=== PATIENT | male | born 1975 | race Caucasian/White ===

== ENCOUNTER 2016-12-23 02:03 | Inpatient (IN) | payer OTHER ==
[~2016-12-23] VITALS: Ht 152.4 cm; Wt 90.8 kg
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
--- NOTE | ~2016-12-23 | ENPV ---
Vascular Lower Extremities DVT Study Procedure Demographics Patient Name XANDER CASTILLO Date of Study 01/03/2017 Patient Number [id number] Gender Male Date of 1975 Age 41 Visit Number [id number] Height Accession Number [id number] Weight Room Number G6214 BSA BMI Referring Shayan Gil MD Physician Physician Physician Ordering Physician Jacquard Lace Weaver Customer Agent Nancy Andersen [facility] Conclusions Summary Bilaterally negative for DVT Procedure Type of Study: Veins:Lower Extremities DVT Study, Venous Duplex Lower Extremity Bilateral. Patient Status:Routine. Study Location:Inpatient Portable. Technical Quality:Adequate visualization. Velocities are measured in cm/s ; Diameters are measured in cm Right Lower Extremities DVT Study Measurements Right 2D and Doppler Measurements + + + + +------+------+ + !Location !Visualized!Compressibility!Thrombosis!Signal!Reflux!Reflux ! ! ! ! ! ! ! !(sec) ! + + + + +------+------+ + !GSV Thigh !Yes !Yes !None !Phasic!No ! ! + + + + +------+------+ + !Common !Yes !Yes !None !Phasic!No ! ! !Femoral ! ! ! ! ! ! ! + + + + +------+------+ + !Prox !Yes !Yes !None !Phasic!No ! ! !Femoral ! ! ! ! ! ! ! + + + + +------+------+ + !Mid Femoral!Yes !Yes !None !Phasic!No ! ! + + + + +------+------+ + !Dist !Yes !Yes !None !Phasic!No ! ! !Femoral ! ! ! ! ! ! ! + + + + +------+------+ + !Popliteal !Yes !Yes !None !Phasic!No ! ! + + + + +------+------+ + !Gastroc !Yes !Yes !None !Phasic!No ! ! + + + + +------+------+ + !PTV !Yes !Yes !None !Phasic!No ! ! + + + + +------+------+ + !Peroneal !Yes !Yes !None !Phasic!No ! ! + + + + +------+------+ + Left Lower Extremities DVT Study Measurements Left 2D and Doppler Measurements + + + + +------+------+ + !Location !Visualized!Compressibility!Thrombosis!Signal!Reflux!Reflux ! ! ! ! ! ! ! !(sec) ! + + + + +------+------+ + !GSV Thigh !Yes !Yes !None !Phasic!No ! ! + + + + +------+------+ + !Common !Yes !Yes !None !Phasic!No ! ! !Femoral ! ! ! ! ! ! ! + + + + +------+------+ + !Prox !Yes !Yes !None !Phasic!No ! ! !Femoral ! ! ! ! ! ! ! + + + + +------+------+ + !Mid Femoral!Yes !Yes !None !Phasic!No ! ! + + + + +------+------+ + !Dist !Yes !Yes !None !Phasic!No ! ! !Femoral ! ! ! ! ! ! ! + + + + +------+------+ + !Popliteal !Yes !Yes !None !Phasic!No ! ! + + + + +------+------+ + !Gastroc !Yes !Yes !None !Phasic!No ! ! + + + + +------+------+ + !PTV !Yes !Yes !None !Phasic!No ! ! + + + + +------+------+ + !Peroneal !Yes !Yes !None !Phasic!No ! ! + + + + +------+------+ + Signature dtt: ARACELI CARBAJAL dtd: 01/03/17 [place] Physician Self [place]ompson
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
--- NOTE | ~2016-12-23 | ENPV ---
Vascular Lower Extremities DVT Study Procedure Demographics Patient Name XANDER CASTILLO Date of Study 12/31/2016 Patient Number [id number] Gender Male Date of 1975 Age 41 Visit Number [id number] Height Accession Number [id number] Weight Room Number G6214 BSA BMI Referring Shayan Hernandes Interpreting Vasyl Birmingham Physician Physician MD Greta Alicea MD Physician Ordering Physician Shayan Hernandes Guest Service Aide First Sampler [facility] Lynda Birmingham Conclusions Summary TECHNIQUE: The veins of the lower extremities on the right and the left were evaluated from the groin to the ankle using little scale, compression, and augmentation. Venous hemodynamics were evaluated with color flow and spectral Doppler. FINDINGS: The deep veins of the legs bilaterally show normal color flow and compressibility without thrombosis. IMPRESSION: NEGATIVE BILATERAL LOWER EXTREMITY VENOUS DOPPLER. Procedure Type of Study: Veins:Lower Extremities DVT Study, Venous Duplex Lower Extremity Bilateral. Indications for Study:Trauma, Pain in Limb and Extended bedrest. Appropriate Use Criteria:8 Patient Status:Routine. Study Location:Inpatient Portable. Technical Quality:Adequate visualization. Velocities are measured in cm/s ; Diameters are measured in cm Right Lower Extremities DVT Study Measurements Right 2D and Doppler Measurements + + + + +------+------+ + !Location !Visualized!Compressibility!Thrombosis!Signal!Reflux!Reflux ! ! ! ! ! ! ! !(sec) ! + + + + +------+------+ + !GSV Thigh !Yes !Yes !None !Phasic!No ! ! + + + + +------+------+ + !Common !Yes !Yes !None !Phasic!No ! ! !Femoral ! ! ! ! ! ! ! + + + + +------+------+ + !Prox !Yes !Yes !None !Phasic!No ! ! !Femoral ! ! ! ! ! ! ! + + + + +------+------+ + !Mid Femoral!Yes !Yes !None !Phasic!No ! ! + + + + +------+------+ + !Dist !Yes !Yes !None !Phasic!No ! ! !Femoral ! ! ! ! ! ! ! + + + + +------+------+ + !Popliteal !Yes !Yes !None !Phasic!No ! ! + + + + +------+------+ + !Gastroc !Yes !Yes !None !Phasic!No ! ! + + + + +------+------+ + !PTV !Yes !Yes !None !Phasic!No ! ! + + + + +------+------+ + !Peroneal !Yes !Yes !None !Phasic!No ! ! + + + + +------+------+ + Left Lower Extremities DVT Study Measurements Left 2D and Doppler Measurements + + + + +------+------+ + !Location !Visualized!Compressibility!Thrombosis!Signal!Reflux!Reflux ! ! ! ! ! ! ! !(sec) ! + + + + +------+------+ + !GSV Thigh !Yes !Yes !None !Phasic!No ! ! + + + + +------+------+ + !Common !Yes !Yes !None !Phasic!No ! ! !Femoral ! ! ! ! ! ! ! + + + + +------+------+ + !Prox !Yes !Yes !None !Phasic!No ! ! !Femoral ! ! ! ! ! ! ! + + + + +------+------+ + !Mid Femoral!Yes !Yes !None !Phasic!No ! ! + + + + +------+------+ + !Dist !Yes !Yes !None !Phasic!No ! ! !Femoral ! ! ! ! ! ! ! + + + + +------+------+ + !Popliteal !Yes !Yes !None !Phasic!No ! ! + + + + +------+------+ + !Gastroc !Yes !Yes !None !Phasic!No ! ! + + + + +------+------+ + !PTV !Yes !Yes !None !Phasic!No ! ! + + + + +------+------+ + !Peroneal !Yes !Yes !None !Phasic!No ! ! + + + + +------+------+ + Signature dtt: Angelo Marcano dtd: 12/31/16 0810 Physician Self Edit
--- NOTE | ~2016-12-23 | ENPV ---
Vascular Lower Extremities DVT Study Procedure Demographics Patient Name XANDER CASTILLO Date of Study 01/07/2017 Patient Number [id number] Gender Male Date of 1975 Age 41 Visit Number [id number] Height Accession Number [id number] Weight Room Number G6214 BSA BMI Referring Lisa Martin MD Interpreting Baljeet Gil MD Physician Physician Physician Ordering Physician Odilia Buckner MD Health Care Attorney Clay Artist Theresa Shultz [facility] Conclusions Summary Normal venous duplex examination of the legs bilaterally with normal venous Doppler signals noted throughout. No evidence of thrombophlebitis is noted bilaterally in the deep and superficial veins of the legs. Small calf thrombi cannot be excluded. Procedure Type of Study: Veins:Lower Extremities DVT Study, Venous Duplex Lower Extremity Bilateral. Additional Indications:Prolonged immobility Appropriate Use Criteria:4 Patient Status:Routine. Study Location:Inpatient Portable. Technical Quality:Adequate visualization. Velocities are measured in cm/s ; Diameters are measured in cm Right Lower Extremities DVT Study Measurements Right 2D and Doppler Measurements + + + + +------+------+ + !Location !Visualized!Compressibility!Thrombosis!Signal!Reflux!Reflux ! ! ! ! ! ! ! !(sec) ! + + + + +------+------+ + !GSV Thigh !Yes !Yes !None !Phasic! ! ! + + + + +------+------+ + !Common !Yes !Yes !None !Phasic! ! ! !Femoral ! ! ! ! ! ! ! + + + + +------+------+ + !Prox !Yes !Yes !None !Phasic! ! ! !Femoral ! ! ! ! ! ! ! + + + + +------+------+ + !Mid Femoral!Yes !Yes !None !Phasic! ! ! + + + + +------+------+ + !Dist !Yes !Yes !None !Phasic! ! ! !Femoral ! ! ! ! ! ! ! + + + + +------+------+ + !Popliteal !Yes !Yes !None !Phasic! ! ! + + + + +------+------+ + !PTV !Yes !Yes !None !Phasic! ! ! + + + + +------+------+ + !Peroneal !Yes !Yes !None !Phasic! ! ! + + + + +------+------+ + Left Lower Extremities DVT Study Measurements Left 2D and Doppler Measurements + + + + +------+------+ + !Location !Visualized!Compressibility!Thrombosis!Signal!Reflux!Reflux ! ! ! ! ! ! ! !(sec) ! + + + + +------+------+ + !GSV Thigh !Yes !Yes !None !Phasic! ! ! + + + + +------+------+ + !Common !Yes !Yes !None !Phasic! ! ! !Femoral ! ! ! ! ! ! ! + + + + +------+------+ + !Prox !Yes !Yes !None !Phasic! ! ! !Femoral ! ! ! ! ! ! ! + + + + +------+------+ + !Mid Femoral!Yes !Yes !None !Phasic! ! ! + + + + +------+------+ + !Dist !Yes !Yes !None !Phasic! ! ! !Femoral ! ! ! ! ! ! ! + + + + +------+------+ + !Popliteal !Yes !Yes !None !Phasic! ! ! + + + + +------+------+ + !PTV !Yes !Yes !None !Phasic! ! ! + + + + +------+------+ + !Peroneal !Yes !Yes !None !Phasic! ! ! + + + + +------+------+ + Signature dtt: ARACELI CARBAJAL dtkatie: 01/07/17 0742 Physician Self Edit
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
[2016-12-23 02:25] LABS: BASOPHIL # 0.1 K/uL (0.0-0.2); BASOPHIL % 0.5 %; EOSINOPHIL % 0.2 %; HEMATOCRIT 43.3 % (37.0-53.0); IMMATURE GRANULOCYTE # 0.1 K/uL (0.0-0.3); IMMATURE GRANULOCYTE % 0.5 %; LYMPHOCYTE # 0.8 K/uL (0.8-4.0); MCH 32.5 pg (27.0-34.0); MCHC 34.6 gm/dL (32.0-36.5); MCV 93.7 fl (83.0-98.0); MONOCYTE # 0.6 K/uL (0.0-1.0); MONOCYTE % 4.5 %; MPV 10.7 fl (9.4-12.4); NEUTROPHIL # (ANC) 11.1 K/uL (1.4-9.0); NEUTROPHIL % 88.3 %; NRBC % 0 /100WBC (0-0.00); PLATELET COUNT 259 K/uL (150-450); RBC 4.62 M/uL (4.00-6.00); RDW-CV 12.1 % (11.9-14.6); WBC 12.6 K/uL (4.0-11.0)
[2016-12-23 02:26] LABS: PCO2 44 mmHg (35-45); PO2 203 mmHg (80-90)
[2016-12-23 02:27] LABS: POTASSIUM 3.5 mEq/L (3.7-5.1); SODIUM 140 mEq/L (135-145)
[2016-12-23 02:35] LABS: INR - (THERAPEUTIC) 0.89 (0.92-1.07); PROTIME 9.3 SECONDS (9.8-11.4); PTT 27 SECONDS (25-32)
[2016-12-23 02:38] LABS: ANION GAP 15.5 (10.0-19.0); BLOOD UREA NITROGEN 9 mg/dL (6-24); CHLORIDE 106 mMol/L (96-110); CREATININE 0.8 mg/dL (0.6-1.3); ESTIMATED GFR (MDRD EQUATION) > 60
[2016-12-23 04:44] LABS: BICARBONATE 21.2 mmol/L (18.0-23.0); PCO2 44 mmHg (35-45)
[2016-12-23 04:45] LABS: PO2 75 mmHg (80-90)
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
--- NOTE | 2016-12-23 06:40 | NUR ---
Patient arrived at [address] Hernandes and OR nurse. Dr. Hi and Dr. Hernandes spoke with the patient's family. Family has been in at the bedside to see patient. VSS. Started propofol, fentayl, and carrier per orders. Not following any commands, pupils pinpoint. On ventilator, currently 60% FiO2. ICP has been <7 and CPP>60. Continue to monitor, wake patient up. Monitor neuro status closely and ICP.
[2016-12-23] MEDS ORDERED: PRINIVIL OR ZES10 MG PO (10:52)
[2016-12-23] MEDS ORDERED: ZOLOFT50 MG PO (10:52)
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
[2016-12-23 18:03] LABS: BLOOD UREA NITROGEN 11 mg/dL (6-24); CHLORIDE 110 mMol/L (96-110); CO2 22 mMol/L (22-32); CREATININE 0.8 mg/dL (0.6-1.3); ESTIMATED GFR (MDRD EQUATION) > 60; SODIUM 142 mMol/L (135-145)
[2016-12-23 18:04] LABS: ANION GAP 14.7 (10.0-19.0); CALCIUM 7.3 mg/dL (8.5-10.5); POTASSIUM 4.7 mMol/L (3.7-5.1)
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
[2016-12-24 04:41] LABS: BICARBONATE 24.9 mmol/L (18.0-23.0); PCO2 44 mmHg (35-45)
[2016-12-24 04:42] LABS: HEMOGLOBIN 12.1 g/dL (12.0-17.0); MCH 32.4 pg (27.0-34.0); MCHC 33.6 gm/dL (32.0-36.5); MCV 96.5 fl (83.0-98.0); MPV 10.6 fl (9.4-12.4); PLATELET COUNT 239 K/uL (150-450); RBC 3.73 M/uL (4.00-6.00); RDW-CV 12.6 % (11.9-14.6); WBC 12.5 K/uL (4.0-11.0)
[2016-12-24 04:44] LABS: PO2 109 mmHg (80-90)
[2016-12-24 04:53] LABS: INR - (THERAPEUTIC) 0.92 (0.92-1.07); PROTIME 9.6 SECONDS (9.8-11.4)
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
[2016-12-24 05:38] LABS: ABSOLUTE NEUTROPHIL CT (ANC) 10.8 K/uL (1.4-9.0); BANDED NEUTROPHIL # 1.9 K/uL (0.0-0.1); BANDED NEUTROPHILS % 15 %; LYMPHOCYTE % 8 %; MONOCYTE # 0.8 K/uL (0.0-1.0); SEGMENTED NEUTROPHIL # 8.9 K/uL (1.4-9.0); SEGMENTED NEUTROPHIL % 71 %
--- NOTE | 2016-12-24 05:51 | NUR ---
Significant Event: Patient remains on ventilator on propofol and fentanyl. Started caridad gtt to maintain CPP>60. Opened ventric x2 for ICP>15 with clear bloody tinged drainage. Purposeful with left arm, spontaneous with legs, no movement on right arm. Overbreaths at times with spontaneous cough. ICP 4-13 for majority of shift. Patient's mother in room for short time, no other visitors or calls. Mcarthur with good UOP. No BM. OG to LIS. Hill J collar in place for precautions. Follow up: Continue to closely monitor ICP/neuro status and maintain ICP<15 and CPP>60 with caridad and propofol gtts.
[2016-12-24 08:25] LABS: ANION GAP 12.5 (10.0-19.0); BLOOD UREA NITROGEN 8 mg/dL (6-24); CALCIUM 7.5 mg/dL (8.5-10.5); CHLORIDE 109 mMol/L (96-110); CO2 24 mMol/L (22-32); CREATININE 0.8 mg/dL (0.6-1.3); ESTIMATED GFR (MDRD EQUATION) > 60; POTASSIUM 4.5 mMol/L (3.7-5.1); SODIUM 141 mMol/L (135-145)
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
[2016-12-24 16:31] LABS: BICARBONATE 24.7 mmol/L (18.0-23.0); PCO2 39 mmHg (35-45); PO2 96 mmHg (80-90)
[2016-12-24 16:44] LABS: ANION GAP 14.3 (10.0-19.0); BLOOD UREA NITROGEN 7 mg/dL (6-24); CALCIUM 7.9 mg/dL (8.5-10.5); CHLORIDE 108 mMol/L (96-110); CO2 23 mMol/L (22-32); CREATININE 0.7 mg/dL (0.6-1.3); ESTIMATED GFR (MDRD EQUATION) > 60; POTASSIUM 4.3 mMol/L (3.7-5.1); SODIUM 141 mMol/L (135-145)
--- NOTE | 2016-12-24 19:25 | NUR ---
Significant Event:Patient's propofol turned off at 0725, fentanyl gtt continues @ 100 mcg/hr, pt withdraws ext x 4 to deep painful stimuli, postures with Bilateral lower extremities, Ventric opened x 4 this shift, PERRLA noted as pupils are 2 and brisk, Papa gtt at 2 mcg/kg/min and Levo started and is at 0.05 mcg/kg/min, remains in SB-SR, RLL diminished lung sounds, has had some thick green/creamy sputum from ETT, parry with adequate UOP, BS hypo, Osmolite 1.5 started this shift and advanced to 30 mls/hr, Dr Hernandes and Dr Hi updated on patient frequently and spoke with family Follow up:Monitor closely for any changes
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
[2016-12-25 03:53] LABS: BICARBONATE 25.6 mmol/L (18.0-23.0); PCO2 36 mmHg (35-45)
[2016-12-25 03:56] LABS: PO2 161 mmHg (80-90)
[2016-12-25 04:08] LABS: ANION GAP 9.8 (10.0-19.0); BLOOD UREA NITROGEN 6 mg/dL (6-24); CHLORIDE 109 mMol/L (96-110); CO2 25 mMol/L (22-32); CREATININE 0.7 mg/dL (0.6-1.3); ESTIMATED GFR (MDRD EQUATION) > 60; POTASSIUM 3.8 mMol/L (3.7-5.1); SODIUM 140 mMol/L (135-145)
[2016-12-25 04:28] LABS: MCH 32.1 pg (27.0-34.0); MCHC 33.3 gm/dL (32.0-36.5); MCV 96.2 fl (83.0-98.0); MPV 11.6 fl (9.4-12.4); PLATELET COUNT 226 K/uL (150-450); RBC 3.43 M/uL (4.00-6.00); RDW-CV 12.6 % (11.9-14.6); WBC 10.7 K/uL (4.0-11.0)
--- NOTE | 2016-12-25 05:39 | NUR ---
Significant Event: Pt continues on the ventiolator without complications. Pt noted to have decorticate posturing to bilat upper extremities, with and without stimulation. Noted to extension with and without stimulation. Pt does not withdraw. No gag reflex noted, but is noted to have a spontaneous cough. Pt does not follow commands. No opening of eyes noted. Bradycardia in the 40s noted tonight without increase in ICP, MD notified. Robinul given x1 IV. Ventric was opened for a total of 6x. CSF is blood tinged. Tube feeding continues with minimal residuals. Did not see family tonight. Updated physician x3 tonight. Follow up: Continue neurointensive care.
[2016-12-25 05:44] LABS: ABSOLUTE NEUTROPHIL CT (ANC) 9.4 K/uL (1.4-9.0); BANDED NEUTROPHIL # 4.8 K/uL (0.0-0.1); BANDED NEUTROPHILS % 45 %; LYMPHOCYTE # 0.9 K/uL (0.8-4.0); LYMPHOCYTE % 8 %; MONOCYTE # 0.3 K/uL (0.0-1.0); SEGMENTED NEUTROPHIL # 4.6 K/uL (1.4-9.0); SEGMENTED NEUTROPHIL % 43 %
[2016-12-25 15:50] LABS: ANION GAP 9.9 (10.0-19.0); BLOOD UREA NITROGEN 4 mg/dL (6-24); CALCIUM 8.1 mg/dL (8.5-10.5); CHLORIDE 108 mMol/L (96-110); CO2 27 mMol/L (22-32); CREATININE 0.8 mg/dL (0.6-1.3); ESTIMATED GFR (MDRD EQUATION) > 60; POTASSIUM 3.9 mMol/L (3.7-5.1); SODIUM 141 mMol/L (135-145)
--- NOTE | 2016-12-25 16:02 | NUR ---
Significant Events: Patient extends to bilat lowers, decorticate to upper ext. Pupils equal and reactive. Does overbreathe vent at times. Cough and gag induced, cough spont at times. ICP 2-mid-20s, opened x3 with blood-tinged CSF drained. Fentanyl continues at 100 mcg/hr. Levo titrated to keep CPP >60, did quad strength. HR high 50s-low 70s. Mini-BAL completed this shift, lungs slightly coarse. Remains in SIMV, PEEP decreased to 8. Parry patent with adequate UOP. No BM. Osmolite 1.5 at goal of 60 ml/hr, max residual 90 mls. T max 100.1, Blanketrol machine switched d/t reading too low. Inserted temp parry. Follow up: Continue
[2016-12-26 03:36] LABS: BICARBONATE 28.5 mmol/L (18.0-23.0); PCO2 41 mmHg (35-45); PO2 131 mmHg (80-90)
[2016-12-26 03:54] LABS: ANION GAP 11.4 (10.0-19.0); BLOOD UREA NITROGEN 4 mg/dL (6-24); CHLORIDE 107 mMol/L (96-110); CO2 27 mMol/L (22-32); CREATININE 0.7 mg/dL (0.6-1.3); ESTIMATED GFR (MDRD EQUATION) > 60; POTASSIUM 3.4 mMol/L (3.7-5.1); SODIUM 142 mMol/L (135-145)
[2016-12-26 04:18] LABS: HEMATOCRIT 32.1 % (37.0-53.0); MCH 32.5 pg (27.0-34.0); MCHC 34.3 gm/dL (32.0-36.5); MPV 11.4 fl (9.4-12.4); PLATELET COUNT 237 K/uL (150-450); RBC 3.38 M/uL (4.00-6.00); RDW-CV 12.2 % (11.9-14.6); WBC 11.9 K/uL (4.0-11.0)
--- NOTE | 2016-12-26 04:42 | NUR ---
PT REMAINS INTUBATED WITH ICP/VENTRIC IN PLACE. ICP 2-23 THIS SHIFT, OPENED X3 FOR A TOTAL OF 90 ML OF STRAW COLORED CSF DRAINED. PERRL BRISKLY AT 2MM. DOES NOT TRACK, DOES NOT OPEN EYES SPONTANEOUSLY. SPONTANEOUS COUGH PRESENT, GAG PRESENT. RUE CONTINUES TO HAVE DECORTICATE POSTURING. LUE AND BLE WITHDRAW TO PAIN. INCREASING AMOUNTS OF SPONTANEOUS MOVEMENT NOTED SHIFT PROGRESSED. BECOMES OVERLY RIGID AND EXTENDS ENTIRE BODY IF PRESENTED WITH ANY STIMULUS. EYES CONTINUE TO DEVIATE UPWARD THROUGHOUT SHIFT. SB-SR ON MONITOR, LEVOPHED INCREASED TO 0.12 MCG/KG/MIN THIS SHIFT. TMAX 99.4, COOLING BLANKET OFF MOST OF SHIFT. SECRETIONS CONTINUE TO BE VILLAREAL/THICK FROM BOTH ETT AND ORAL SUCTIONING. OG REMAINS PATENT, TOLERATING TF WELL, RESIDUALS 65-150 FOR THIS RN. NO BM THIS SHIFT. UOP TRENDING DOWN THIS SHIFT. HARLEY BASURTO, RN
[2016-12-26 05:17] LABS: ABSOLUTE NEUTROPHIL CT (ANC) 10.7 K/uL (1.4-9.0); BANDED NEUTROPHIL # 6.1 K/uL (0.0-0.1); BANDED NEUTROPHILS % 51 %; LYMPHOCYTE # 1.1 K/uL (0.8-4.0); LYMPHOCYTE % 9 %; MONOCYTE # 0.1 K/uL (0.0-1.0); SEGMENTED NEUTROPHIL # 4.6 K/uL (1.4-9.0); SEGMENTED NEUTROPHIL % 39 %
--- NOTE | 2016-12-26 11:43 | NUR ---
A - NUT F/U. VENT. ICP/VENTRIC. LABS: ACCUCHECK WNL-REAS, K+ 3.4, GLU 146, BUN/CR 4/0.7, WBC 11.9. MEDS: KCL, FOLIC ACID/THIAMINE, SSI, PREVACID, BOWEL. DIET: OSMOLITE 1.5 @ 60 ML/HR W/ 200 ML WATER Q6 HRS VIA OG. RESIDUALS. 30-150 ML. PROVIDES 2160 KCAL, 90 G PRO, 1097 ML FREE WATER. EST NEEDS: 9807-5686 KCAL, 78-140 G PRO. D - DIFFICULTY SWALLOWING R/T VENT SUPPORT, CHI AEB NEED FOR ENTERAL NUTRITION. I - GOAL FOR CONTINUED ENTERAL NUTRITION TOLERANCE. M/E - WILL MONITOR POC, TF. F/U IN 2-4 DAYS.
--- NOTE | 2016-12-26 16:20 | NUR ---
SIGNIFICANT EVENT: FENT DRIP SHUT OFF AT 1205. PATIENT DOES NOT OPEN EYES SPONT, TO VOICE, OR TO PAIN. PUPILS EQUAL AND REACTIVE. PATIENT DOES NOT FOLLOW ANY COMMANDS. PATIENT MOVES BILATERAL LOWER EXTREMITIES SPONTANEOUSLY. PATIENT WITHDRAWS TO PAIN IN BILATERAL LOWER EXTREMITIES. PATIENT AT TIMES HAS EXTENSION/ POSTURING IN BILATERAL LOWER EXTREMITIES WHEN COUGHIN. PATIENT HAS PURPOSEFUL MOVMENTS IN L) UPPER EXTREMITY AND WITHDRAWS TO PAIN. PATIENT HAS DECORTICATE POSTURING AT REST AND TO PAIN IN R) UPPER EXTREMITY. NO SPONT. MOVEMENTS NOTED. ICP/VENTRIC IN PLACE. NO DRAINAGE AROUND ICP/VENTRIC SITE, NO CLOTTING/ BUBBLING/ OR BLOOD NOTED IN TUBING. VENTRIC CLOSED AT ALL TIMES TODAY. ICP 6-14 THROUGHOUT THE DAY. CPP 68-81 TODAY. PATIENT HAS BEEN IN SINUS RHYTHM, ANDRES AT TIMES. HR 50-60S. PULSES PALPABLE THROUGHOUT. LEVOPHED INFUSING AT 0.1 MCG/KG/MIN TO KEEP CPP 75-90. MAXT TEMP OF 99.8. EDEMA PRESENT. SBP 110-120, MAP>65. PATIENT HAS BEEN IN SIMV MODE ON THE VENT THROUGHOUT THE DAY. OCCASIONALLY OVERBREATHS VENT SETTINGS. RR 16, TV 650, PEEP 8, PSV 10, 40% FIO2. THICK CREAMY SECRETIONS THROUGHOUT ET TUBE AND ORAL SECRETIONS. ETCO2 WITHIN NORMAL. BOWEL SOUNDS PRESENT, NO BM. OG INFUSING OSMO AT 60ML/HR, GOAL. ACUU CHECKS EVERY 4 HOURS, AGGRESSIVE SLIDING SCALE. ADEQUATE URINE OUTPUT THROUGH ANTOINE. BATH COMPLETED TODAY. OT/PT ORDER TO DO PASSIVE ROM. FOLLOW UP: CONTINUE TO MONITOR.
[2016-12-26 17:07] LABS: ALBUMIN 2.2 gm/dL (3.5-5.0); TOTAL BILIRUBIN 0.4 mg/dL (0.0-1.5)
[2016-12-26 17:08] LABS: ANION GAP 7.8 (10.0-19.0); BLOOD UREA NITROGEN 6 mg/dL (6-24); CHLORIDE 107 mMol/L (96-110); CO2 30 mMol/L (22-32); CREATININE 0.8 mg/dL (0.6-1.3); ESTIMATED GFR (MDRD EQUATION) > 60; POTASSIUM 3.8 mMol/L (3.7-5.1); SODIUM 141 mMol/L (135-145)
[2016-12-27 05:01] LABS: BASOPHIL % 0.4 %; EOSINOPHIL # 0.1 K/uL (0.0-0.5); EOSINOPHIL % 0.6 %; HEMATOCRIT 32.7 % (37.0-53.0); HEMOGLOBIN 10.9 g/dL (12.0-17.0); IMMATURE GRANULOCYTE # 0.1 K/uL (0.0-0.3); IMMATURE GRANULOCYTE % 0.8 %; LYMPHOCYTE # 1.2 K/uL (0.8-4.0); LYMPHOCYTE % 11.4 %; MCH 32.1 pg (27.0-34.0); MCHC 33.3 gm/dL (32.0-36.5); MCV 96.2 fl (83.0-98.0); MONOCYTE # 0.5 K/uL (0.0-1.0); MPV 11.1 fl (9.4-12.4); NEUTROPHIL # (ANC) 8.3 K/uL (1.4-9.0); NEUTROPHIL % 81.8 %; NRBC % 0 /100WBC (0-0.00); PLATELET COUNT 252 K/uL (150-450); RDW-CV 12.7 % (11.9-14.6); WBC 10.1 K/uL (4.0-11.0)
[2016-12-27 05:03] LABS: ANION GAP 8.9 (10.0-19.0); BLOOD UREA NITROGEN 9 mg/dL (6-24); CALCIUM 8.5 mg/dL (8.5-10.5); CHLORIDE 111 mMol/L (96-110); CO2 27 mMol/L (22-32); CREATININE 0.7 mg/dL (0.6-1.3); ESTIMATED GFR (MDRD EQUATION) > 60; POTASSIUM 3.9 mMol/L (3.7-5.1); SODIUM 143 mMol/L (135-145)
--- NOTE | 2016-12-27 05:05 | NUR ---
Patient remained on an FIO2 of 40% with saturations of 99-100%. Breath sounds are slightly coarse to coarse through out. Suctioning small to moderate amounts of thick yellow/cream sputum. End tidal has ran 29-37. Will continue to monitor.
--- NOTE | 2016-12-27 06:41 | NUR ---
Significant Event: PATIENT ON PROPOFOL GTT AT 20MCG/KG/MIN. PURPOSEFUL WITH LEFT SIDE EXTREMITIES. SPONTANEOUS MOVEMENT OF RIGHT SIDE EXTREMITIES NOTED. SPONTANEOUS AND INDUCED COUGH. GAG INTACT. ICP 5-15. TEMP MAX 100.1. SCHEDULED TYLENOL AND MOTRIN. CONTINUES ON VENT. SUCTIONING CREAMY SECRETIONS. OGT WITH OSMOLITE TF AT GOAL 60ML/HR, Q6HR 200ML WATER FLUSHES. RESIDUAL HIGH 100ML. NO BM. ANTOINE WITH GOOD UOP. RIGHT IJ QUAD LUMEN. RIGHT PIV X2. LEVOPHED GTT TITRATED FOR CPP 75-90. PROPOFOL FOR LIGHT SEDATION. DR CONRAD AT BEDSIDE, STAPLED ICP/VENTRIC SITE FOR CSF DRAINAGE. Follow up: CONTINUE.
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
--- NOTE | 2016-12-27 17:42 | NUR ---
Significant Event:ATTEMPTED TO STOP SEDATION BUT UNABLE TO D/T INCREASED ICP'S. VENTRIC OPEN X 2 THIS PM, PROPAFOL INCREASED TO 35 MCQ/KG/MIN. MOTRIN CHANGED TO PRN Q 8 HRS LAST DOSE 1710. T-MAX 102.1 AT 1720. RESIDUALS 0-40-150., TREATED [address] IN AM AT 0200. BATH GIVEN, NO NEW SKIN ISSUE'S NOTED. SPONTANEOUS COUGH AND GAG., STARTED AMOXICILLIN , DC'D ROCHEFIN. Follow up:CONTINUE TO MONITOR, ZHEN CONSULT AND JASMIN CONSULT ORDERED
[2016-12-28 04:30] LABS: BLOOD UREA NITROGEN 12 mg/dL (6-24); CALCIUM 8.2 mg/dL (8.5-10.5); CHLORIDE 109 mMol/L (96-110); CO2 28 mMol/L (22-32); CREATININE 0.7 mg/dL (0.6-1.3); ESTIMATED GFR (MDRD EQUATION) > 60; SODIUM 144 mMol/L (135-145)
--- NOTE | 2016-12-28 05:00 | NUR ---
Patient remained on an FIO2 of 40% with end tidals of 31-35. Breath sounds are slightly coarse at times. Clear with suctioning. Suctioning small amounts of thick cream. Transported to CT this shift. Will continue to monitor.
[2016-12-28 05:01] LABS: BASOPHIL # 0.1 K/uL (0.0-0.2); BASOPHIL % 0.7 %; EOSINOPHIL # 0.1 K/uL (0.0-0.5); EOSINOPHIL % 0.7 %; HEMATOCRIT 33.4 % (37.0-53.0); HEMOGLOBIN 11.1 g/dL (12.0-17.0); IMMATURE GRANULOCYTE # 0.1 K/uL (0.0-0.3); IMMATURE GRANULOCYTE % 1.5 %; LYMPHOCYTE # 1.2 K/uL (0.8-4.0); MCH 32.3 pg (27.0-34.0); MCHC 33.2 gm/dL (32.0-36.5); MCV 97.1 fl (83.0-98.0); MONOCYTE # 0.5 K/uL (0.0-1.0); MONOCYTE % 7.7 %; MPV 10.7 fl (9.4-12.4); NEUTROPHIL # (ANC) 4.9 K/uL (1.4-9.0); NEUTROPHIL % 71.4 %; NRBC % 0 /100WBC (0-0.00); PLATELET COUNT 285 K/uL (150-450); RBC 3.44 M/uL (4.00-6.00); RDW-CV 12.8 % (11.9-14.6); WBC 6.8 K/uL (4.0-11.0)
--- NOTE | 2016-12-28 05:57 | NUR ---
Significant Event: PROPOFOL AT 35MCG/KG/MIN OVERNIGHT. GAVE PRN FENTANYL X1 FOR RESTLESSNESS PRIOR TO CT. OPENED VENTRIC X4. EXTENDS ON R) AND L) LOWER. PURPOSEFUL AT TIMES ON L) UPPER. VSS. TMAX OF 102.9. DR. NICOLE MADE AWARE OVERNIGHT. CONTINUES IN SIMV, 40%. LUNG SOUNDS COARSE AT TIMES. THICK YELLOW SPUTUM OUT OF ETT. HYPOACTIVE BOWEL SOUNDS. NO BM. HAD RESIDUAL MAX OF 440ML. NOTIFIED DR. NICOLE. HELD TUBE FEED UNTIL <200ML. RESTARTED TF AT 0500 THIS AM. GOOD UOP. TURNED Q2HR. TO CT OVERNIGHT. Follow up: CONTINUE TO MONITOR. NEED PLAN FOR TRACH/PEG
--- NOTE | 2016-12-28 10:25 | NUR ---
Reviewed chart, talked with pt mom and sister in waiting room, and called Carine on her cell phone [phone]. She has been working from home in the mornings and coming about 2pm to see patient daily. Discussed referral to [facility], offered other option of [facility] in [place], Carine reports [facility] is her preference. Will start referral today and let Carine and pt mom and sister know if/when [facility] will come out to assess next week. Carine is fine with that plan, anticipate pt getting trach and peg early next week. Called [facility] and talked with Patrizia [phone]. Will fax referral information to [phone] and Patrizia will call me back today if she knows when they will visit next week, otherwise I will touch base with her on Saturday.
--- NOTE | 2016-12-28 11:26 | NUR ---
A - NUT F/U. VENT. SEDATED ON PROPOFOL. TF HELD OVERNIGHT D/T RESIDUALS. NO BM SINCE ADMIT - MEDS BEING GIVEN. ICP/VENTRIC. POSSIBLE TRACH/PEG NEXT WEEK. LABS: ACCUCHECK WNL-REAS, GLU 128, ALB 2.2. MEDS: KCL, CEREBYX, FOLIC ACID, THIAMINE, SSI, PREVACID, AMPICILLIN, BOWEL. DIET: OSMOLITE 1.5 @ 60 ML/HR VIA OG. RESIDUALS 0-440 ML. PROVIDES 2160 KCAL, 90 G PRO, 1097 ML FREE WATER. NEEDS: [id number] KCAL, 78-140 G PRO D - DIFFICULTY SWALLOWING R/T VENT SUPPORT AEB NEED FOR ENTERAL NUTRITION. INADEQUATE ENTERAL NUTRITION INFUSION R/T ALTERED GI FUNCTION AEB NO BM SINCE ADMIT, RESIDUALS 440 ML. I - GOAL FOR ENTERAL NUTRITION TOLERANCE. GOAL FOR IMPROVED GI FUNCTION. M/E - WILL MONITOR POC, GI FUNCTION, TF F/U IN 2-3 DAYS.
--- NOTE | 2016-12-28 13:03 | NUR ---
Speech Tx Note: Orders rec'd; Chart rev'd; Per discussion with pt's RN, pt is intubated and sedated. Pt will not be able to fully participate in a speech/swallowing evaluation at this time. Will f/u and initiate evaluation when pt's medical status status improves. Thank you for this referral. Charisma Joseph M.A. [facility]-INTERPRETER TRANSLATOR
--- NOTE | 2016-12-28 16:06 | NUR ---
No changes to vent settings t/o shift, continued on 40% Fio2 lung sounds slightly coarse uppers, diminished/slightly coarse bases. Sxn small-moderate thick cream with spont cough from Pt. Will continue to monitor and wean as ordered
--- NOTE | 2016-12-28 19:13 | NUR ---
Significant Event:Pt sedated on propofol @ 15 mcg/kg/min, pt appears to follow commands by wiggling toes to LLE and withdraws to pain in LUE and extends/withdraws to deep painful stimuli in RLE and RUE, pupils 2 and brisk, pt in SR, Dr Hernandes updated frequently, d/c'd parry catheter and had to replace it d/t bladder scan > 999mls, tolerates Osmolite 1.5 @ 60 mls/hr with minimal residuals, getting MOM, sennakot, colace and mag citrate in order to pass BM, fentanyl given x 1 for pain and Oxycodone given routine Follow up:Continue to monitor neuro status closely for any changes
--- NOTE | 2016-12-29 04:56 | NUR ---
No changes made to vent settings this shift. FiO2 currently 40% for O2 sats of 99-100%. ETCO2 was 31-37 throughout the shift. Breathsounds slightly coarse throughout bilaterally, suctioning small amounts thick creamy secretions. Will continue to monitor patient.
[2016-12-29 13:31] LABS: BASOPHIL # 0.1 K/uL (0.0-0.2); BASOPHIL % 0.7 %; EOSINOPHIL # 0.1 K/uL (0.0-0.5); EOSINOPHIL % 1.9 %; HEMATOCRIT 35.7 % (37.0-53.0); HEMOGLOBIN 11.9 g/dL (12.0-17.0); IMMATURE GRANULOCYTE # 0.2 K/uL (0.0-0.3); IMMATURE GRANULOCYTE % 2.9 %; LYMPHOCYTE % 27.8 %; MCH 32.4 pg (27.0-34.0); MCHC 33.3 gm/dL (32.0-36.5); MCV 97.3 fl (83.0-98.0); MONOCYTE # 0.7 K/uL (0.0-1.0); MPV 9.8 fl (9.4-12.4); NEUTROPHIL # (ANC) 4.1 K/uL (1.4-9.0); NEUTROPHIL % 56.7 %; NRBC % 0 /100WBC (0-0.00); PLATELET COUNT 299 K/uL (150-450); RBC 3.67 M/uL (4.00-6.00); RDW-CV 12.5 % (11.9-14.6); WBC 7.3 K/uL (4.0-11.0)
[2016-12-29 13:44] LABS: ANION GAP 11.4 (10.0-19.0); BLOOD UREA NITROGEN 12 mg/dL (6-24); CALCIUM 8.5 mg/dL (8.5-10.5); CHLORIDE 108 mMol/L (96-110); CO2 29 mMol/L (22-32); CREATININE 0.9 mg/dL (0.6-1.3); ESTIMATED GFR (MDRD EQUATION) > 60; POTASSIUM 4.4 mMol/L (3.7-5.1); SODIUM 144 mMol/L (135-145)
--- NOTE | 2016-12-29 17:34 | NUR ---
Significant Events: Patient remains sedated on Propofol, extends on BLE, purposeful with BUE, decerebrate posturing to RUE, withdraw to LUE. Ventric opened x4 on this shift. Labetalol given x2 for CPP >100. HR remains SR, SBP stable. T-max 100.1, PRN Motrin given x2. Remains in SIMV, lungs slightly coarse. Continue to get thick, cream secretions suctioned out ETT, copious amounts of oral secretions. Osmolite 1.5 continues at 60 ml/hr, max residual 40 ml. No BM, Mag Citrate given x1, increased MOM dose. Bowel sounds active-hypoactive. Mcarthur has adequate UOP. Family meeting conducted with nursing staff d/t unresolved family dynamics. is to make all decisions and , mom and dad are all aware. Follow up: Continue
--- NOTE | 2016-12-30 04:47 | NUR ---
No changes made to vent settings this shift. FiO2 currently at 40% for O2 sats of 99-100%. ETCO2 was 34-39 throughout the shift. Breathsounds slightly coarse throughout bilaterally. Suctioning small to moderate amounts of thick creamy secretions. ETT suction catheter changed this. Will continue to monitor patient.
[2016-12-30 05:21] LABS: ANION GAP 10.7 (10.0-19.0); BLOOD UREA NITROGEN 13 mg/dL (6-24); CALCIUM 8.8 mg/dL (8.5-10.5); CHLORIDE 105 mMol/L (96-110); CO2 28 mMol/L (22-32); CREATININE 0.8 mg/dL (0.6-1.3); ESTIMATED GFR (MDRD EQUATION) > 60; POTASSIUM 4.7 mMol/L (3.7-5.1); SODIUM 139 mMol/L (135-145)
[2016-12-30 05:26] LABS: HEMATOCRIT 37.1 % (37.0-53.0); HEMOGLOBIN 12.4 g/dL (12.0-17.0); MCH 32.3 pg (27.0-34.0); MCHC 33.4 gm/dL (32.0-36.5); MCV 96.6 fl (83.0-98.0); RBC 3.84 M/uL (4.00-6.00); RDW-CV 12.6 % (11.9-14.6); WBC 9.3 K/uL (4.0-11.0)
[2016-12-30 05:27] LABS: PLATELET COUNT 391 K/uL (150-450)
--- NOTE | 2016-12-30 05:31 | NUR ---
Significant Event: No neurological changes. No commands. Pupils equal and reactive, moves all extremeties. No cardiac events. Labetolol given x1 for CPP >100. SIMV on vent, lung sounds slightly coarse throughout. Thick clear secretions oral and ETT. Bowel sounds active, tolerating TF well. BM x2 this shift, loose. Catheter intact, adequate UOP. No skin changes. Tmax 100.6, ibuprofen given x1. ICP 6-23, ventric opened x6, 99ml clear csf drained. Follow up: Continue
[2016-12-30 06:13] LABS: ABSOLUTE NEUTROPHIL CT (ANC) 5.8 K/uL (1.4-9.0); LYMPHOCYTE # 2.2 K/uL (0.8-4.0); LYMPHOCYTE % 24 %; MONOCYTE # 1.1 K/uL (0.0-1.0); SEGMENTED NEUTROPHIL # 5.8 K/uL (1.4-9.0); SEGMENTED NEUTROPHIL % 62 %
--- NOTE | 2016-12-30 11:12 | NUR ---
A - NUT F/U. VENT. SEDATED. ICP/VENTRIC. STOOLING. NO LONGER HAVING ELEVATED RESIDUALS. 1+ EDEMA. LABS: ACCUCHECK WNL-REAS, GLU 148. MEDS: SSI, KCL, FOLIC ACID, THIAMINE, AMPICILLIN. DIET: OSMOLITE 1.5 @ 60 ML/HR W/ 200 ML WATER 16 HRS VIA OG. MIN RESIDUALS. PROVIDES 2160 KCAL, 90 G PRO, 1097 ML FREE WATER. NEEDS: [id number] KCAL, 78-140 G PRO D - DIFFICULTY SWALLOWING R/T VENT SUPPORT AEB NEED FOR ENTERAL NUTRITION. I - GOAL FOR CONTINUED ENTERAL NUTRITION TOLERANCE. M/E - WILL MONITOR POC, TF F/U IN 3-4 DAYS.
--- NOTE | 2016-12-30 15:46 | NUR ---
No changes to vent settings t/o shift, continued in SIMV mode, Peep 5, PS 10, 40% Fio2. Lung sounds slightly coarse t/o, uppers>bases. Sxn small-moderate thick cream with strong cough from Pt. Still slightly coarse post sxn. Will continue to monitor, trach/peg this week?
--- NOTE | 2016-12-30 15:47 | NUR ---
Significant Events: Patient remains on Propofol at 15 mcg/kg/min. Extends to BLE, purposeful with BUE to painful stimuli. Pupils equal and reactive. SR with SBP stable. PRN Labetalol given x1. Ventric opened x3 this shift, clear CSF drained. Plans for Trach/PEG beginning of this week. Follow up: Continue
--- NOTE | 2016-12-31 04:53 | NUR ---
Significant Event: No neurolocial changes from previous shift. ICP 2-30, open ventric x3. SR, BP stable, Tmax 100.6. A/C on vent, lung sounds coarse throughout. Small amounts of clear, thick ETT secretions. Large amounts of clear thick oral secretions. Bowel sounds active, BM x2. Mcarthur intact, adequate UOP. No skin changes. R)IJ intact, propofol infusing at 15mcg/kg/min. Follow up: PICC consult? Continue
[2016-12-31 05:10] LABS: ANION GAP 11.5 (10.0-19.0); BLOOD UREA NITROGEN 18 mg/dL (6-24); CALCIUM 8.9 mg/dL (8.5-10.5); CHLORIDE 104 mMol/L (96-110); CO2 29 mMol/L (22-32); CREATININE 0.8 mg/dL (0.6-1.3); ESTIMATED GFR (MDRD EQUATION) > 60; POTASSIUM 4.5 mMol/L (3.7-5.1); SODIUM 140 mMol/L (135-145)
--- NOTE | 2016-12-31 05:29 | NUR ---
No vent changes made this shift, continues on 40% FiO2. BrSs coarse at times, suctioned moderate amounts of thick, cream secretions from ETT. EtCO2 32-38. On low dose of propofol for sedation. Continue per plan of care.
[2016-12-31 05:32] LABS: HEMATOCRIT 38.5 % (37.0-53.0); HEMOGLOBIN 12.9 g/dL (12.0-17.0); MCH 32.3 pg (27.0-34.0); MCHC 33.5 gm/dL (32.0-36.5); MCV 96.5 fl (83.0-98.0); MPV 10.2 fl (9.4-12.4); PLATELET COUNT 398 K/uL (150-450); RBC 3.99 M/uL (4.00-6.00); RDW-CV 12.5 % (11.9-14.6); WBC 10.8 K/uL (4.0-11.0)
[2016-12-31 06:28] LABS: ABSOLUTE NEUTROPHIL CT (ANC) 7.6 K/uL (1.4-9.0); BANDED NEUTROPHIL # 0.8 K/uL (0.0-0.1); BANDED NEUTROPHILS % 7 %; LYMPHOCYTE # 2.5 K/uL (0.8-4.0); LYMPHOCYTE % 23 %; MONOCYTE # 0.4 K/uL (0.0-1.0); SEGMENTED NEUTROPHIL # 6.8 K/uL (1.4-9.0); SEGMENTED NEUTROPHIL % 63 %
--- NOTE | 2016-12-31 11:07 | NUR ---
Called Nancy at [facility] and faxed update to her. She is planning on coming to assess patient tomorrow. Plan for trach/peg this afternoon. Ventric/ICP monitor still in. Called Carine at [phone] and left her a voicemail with plan for Nancy from [facility] coming tomorrow to assess, she thought she would be here around 1100. I then talked with pt mom and sister in waiting room and let them know. They are okay with that plan, mom has appt in [place] tomorrow so they won't be here. Mom does ask about starting application for disability, I will talk with Carine and then make referral to [facility] to assist/explain that process. Mom also asks about Carine getting guardianship, reports Carine has talked to store coordinator who told her she may need to do that to sign legal documents. I will talk with Carine and then we can assist by getting letter from physician stating not able to make decisions due to TBI if that is what Carine wants to pursue. Waiting call back from Carine.
--- NOTE | 2016-12-31 15:27 | NUR ---
No changes to vent settings t/o shift, continued on 40% Fio2. Increased to 100% for trach procedure then returned to 40%. 8.0 Shiley trach placed, sxn catheter changed. Sxn small bloody post. Clear/diminished lung sounds post procedure. Will continue to monitor
--- NOTE | 2016-12-31 15:57 | NUR ---
Talked with pt Carine, gave her Nancy from [employer]'s phone number and either she or her daughter will be here tomorrow morning at 1100 for Nancy's visit. She does want to pursue temporary guardianship so they can help David pay bills, I called Dr Hi and then put letter on chart for Dr Hi to sign recommending temporary guardianship be obtained by family. Gave Carine Shaffer's card with [employer] to call and she can help her with application to disability process. Called and talked with Dionne with [employer] and she will leave message for Deena. Hunting Guide will follow.
--- NOTE | 2016-12-31 17:41 | NUR ---
Significant Event: Continues on vent. Tracheostomy, PEG tube, and PICC placed. Sedation turned off. Ventriculostomy opened 4 times. Vital signs stable. Purposeful movement at times with bilat arms, more in left than in right arm. Family present intermittently throughout the day. Follow up: continue
--- NOTE | 2017-01-01 03:47 | NUR ---
SIGNIFICANT EVENT: NO SIGNIFICANT CHANGES THROUGHOUT SHIFT, NEURO STATUS REMAINS UNCHANGED. VENTRIC OPEN X2 FOR 24MLS OUT. NS GTT OFF AND TF UP TO GOAL. MINIMAL BLOODY DRAINAGE FROM TRACH. LOOSE STOOLS X3 FOLLOW UP:
--- NOTE | 2017-01-01 04:48 | NUR ---
No vent changes made this shift. Continues in SIMV, FiO2 40%, rarely breathes over set RR of 16. BrSs slightly coarse to clear with suctioning of moderate amounts of bloody secretions from trach. EtCO2 mid 30s this shift. Continue per plan of care.
[2017-01-01 05:36] LABS: BLOOD UREA NITROGEN 23 mg/dL (6-24); CALCIUM 8.5 mg/dL (8.5-10.5); CHLORIDE 105 mMol/L (96-110); CO2 25 mMol/L (22-32); CREATININE 0.9 mg/dL (0.6-1.3); ESTIMATED GFR (MDRD EQUATION) > 60; SODIUM 139 mMol/L (135-145)
[2017-01-01 05:40] LABS: BASOPHIL # 0.1 K/uL (0.0-0.2); BASOPHIL % 0.5 %; EOSINOPHIL # 0.3 K/uL (0.0-0.5); EOSINOPHIL % 2.2 %; HEMATOCRIT 35.6 % (37.0-53.0); HEMOGLOBIN 11.9 g/dL (12.0-17.0); IMMATURE GRANULOCYTE # 0.2 K/uL (0.0-0.3); IMMATURE GRANULOCYTE % 1.9 %; LYMPHOCYTE # 1.8 K/uL (0.8-4.0); LYMPHOCYTE % 15.3 %; MCH 32.3 pg (27.0-34.0); MCHC 33.4 gm/dL (32.0-36.5); MCV 96.7 fl (83.0-98.0); MONOCYTE # 0.9 K/uL (0.0-1.0); MONOCYTE % 7.4 %; MPV 10.1 fl (9.4-12.4); NEUTROPHIL # (ANC) 8.4 K/uL (1.4-9.0); NEUTROPHIL % 72.7 %; NRBC % 0 /100WBC (0-0.00); PLATELET COUNT 347 K/uL (150-450); RBC 3.68 M/uL (4.00-6.00); RDW-CV 12.4 % (11.9-14.6); WBC 11.6 K/uL (4.0-11.0)
--- NOTE | 2017-01-01 09:46 | NUR ---
ST note Pt is not alert or responding to voice/touch. Plan- continue to monitor as he progresses and initiate evaluation process when more alert/responsive. 01/01/17 Ritu OLEARY MS CCC/TSA SCREENER
--- NOTE | 2017-01-01 15:18 | NUR ---
I spoke with Nancy with [facility] this am and she did get information on pt. She will start working on the precert but is aware pt still has the icp/ventric. If daughter does not get here Nancy stated she would call them.
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
--- NOTE | 2017-01-01 17:32 | NUR ---
Significant Event: Ventric drain opened X1 for an ICP >15. ICP limit changed to 20 this evening. Patient is still not following any commands and does not open eyes to painful stimulus. Eyes do not track and are slightly deviated up and outward. Lung sounds clear with suction, but he is having out a lot of thick secretions. Sputum culuture drawn along with urine and blood X2. Trach site looks and inner canula changed. He is tolerating tube feeds well with no residuals. Ventilator changed to Cpap this evening and he is tolerating well so far. [facility] evaluated today. Will be in touch for transfer once patient is doing better. Current goals are to keep ventric shut without ICP >20 so it can be removed and for patient to tolerate Cpap. Follow up: Continue to monitor
--- NOTE | 2017-01-02 03:42 | NUR ---
Patient remained in CPAP 5/10 through out shift. Respiratory rate remained less than 30, sats greater than 90%, and ICPs less than 20 except when suctioning. Suctioning thick, creamy, sometimes blood tinged sputum. Breath sounds slightly coarse to coarse through out. Will continue to monitor.
[2017-01-02 05:12] LABS: BASOPHIL # 0.1 K/uL (0.0-0.2); BASOPHIL % 0.4 %; EOSINOPHIL # 0.1 K/uL (0.0-0.5); EOSINOPHIL % 0.8 %; HEMATOCRIT 29.6 % (37.0-53.0); IMMATURE GRANULOCYTE # 0.1 K/uL (0.0-0.3); LYMPHOCYTE # 1.6 K/uL (0.8-4.0); LYMPHOCYTE % 12.3 %; MCH 32.3 pg (27.0-34.0); MCHC 33.8 gm/dL (32.0-36.5); MCV 95.5 fl (83.0-98.0); MONOCYTE # 0.8 K/uL (0.0-1.0); MONOCYTE % 6.4 %; NEUTROPHIL % 79.1 %; NRBC % 0 /100WBC (0-0.00); PLATELET COUNT 311 K/uL (150-450); RDW-CV 12.2 % (11.9-14.6); WBC 12.6 K/uL (4.0-11.0)
[2017-01-02 05:16] LABS: BLOOD UREA NITROGEN 13 mg/dL (6-24); CHLORIDE 113 mMol/L (96-110); CO2 23 mMol/L (22-32); CREATININE 0.5 mg/dL (0.6-1.3); ESTIMATED GFR (MDRD EQUATION) > 60; POTASSIUM 3.2 mMol/L (3.7-5.1)
[2017-01-02 05:21] LABS: ANION GAP 16.2 (10.0-19.0); CALCIUM 6.4 mg/dL (8.5-10.5); SODIUM 149 mMol/L (135-145)
--- NOTE | 2017-01-02 05:28 | NUR ---
Significant Event: Patient remains on ventilator without sedation. ICP/ventric in place. Opened 3 times for ICP>20 with clear CSF drainage. Does not follow any commands, does not open eyes. Eyes deviate/react with light. VSS. Trach in place, bloody drainage present around stoma site. Thick secretions suctioned out. Spontaneous cough. Mcarthur with good UOP. PEG with tube feeding/flushes. Minimal residuals. Loose large bowel movement. Foot drop boots/turn Q2h. Cooling blanket on- continuing to have fevers. No family present or calls. Follow up: Continue to monitor closely.
[2017-01-02 07:56] LABS: BASOPHIL # 0.1 K/uL (0.0-0.2); BASOPHIL % 0.5 %; EOSINOPHIL # 0.2 K/uL (0.0-0.5); EOSINOPHIL % 1.1 %; HEMOGLOBIN 12.1 g/dL (12.0-17.0); IMMATURE GRANULOCYTE # 0.2 K/uL (0.0-0.3); IMMATURE GRANULOCYTE % 1.2 %; LYMPHOCYTE # 1.9 K/uL (0.8-4.0); LYMPHOCYTE % 13.8 %; MCH 32.3 pg (27.0-34.0); MCHC 33.5 gm/dL (32.0-36.5); MCV 96.3 fl (83.0-98.0); MONOCYTE # 0.9 K/uL (0.0-1.0); MONOCYTE % 6.5 %; MPV 10.1 fl (9.4-12.4); NEUTROPHIL # (ANC) 10.6 K/uL (1.4-9.0); NEUTROPHIL % 76.9 %; NRBC % 0 /100WBC (0-0.00); PLATELET COUNT 354 K/uL (150-450); RBC 3.75 M/uL (4.00-6.00); WBC 13.8 K/uL (4.0-11.0)
[2017-01-02 07:57] LABS: HEMATOCRIT 36.1 % (37.0-53.0)
[2017-01-02 08:04] LABS: ANION GAP 9.9 (10.0-19.0); BLOOD UREA NITROGEN 16 mg/dL (6-24); CALCIUM 8.5 mg/dL (8.5-10.5); CHLORIDE 104 mMol/L (96-110); CO2 29 mMol/L (22-32); CREATININE 0.7 mg/dL (0.6-1.3); ESTIMATED GFR (MDRD EQUATION) > 60; POTASSIUM 3.9 mMol/L (3.7-5.1)
[2017-01-02 08:06] LABS: SODIUM 139 mMol/L (135-145)
--- NOTE | 2017-01-02 08:53 | NUR ---
ST NOTE - Attempted to initiate evaluation. Pt did not arouse or respond to voice or tactile stimulation. Pt's RN reports he responds w/ withdrawal to pain. Plan - continue to monitor and evaluate when able to participate. 01/02/17 Ritu OLEARY MS CCC/SUPERVISOR NUCLEAR MEDICINE
--- NOTE | 2017-01-02 11:48 | NUR ---
A - NUT F/U. TRACH-VENT. ICP/VENTRIC. PEG PLACED. LIQUID STOOLS - BENEFIBER STARTED. 1+ EDEMA. LABS: GLU 121, PREALB 45, WBC 13.8 MEDS: LEVAQUIN, BENEFIBET, IVF, KCL, FOLIC ACID, PREVACID, AMPICILLIN, BOWEL. DIET: OSMOLITE 1.5 @ 60 ML/HR W/ 200 ML WATER Q5 HRS VIA PEG. MIN RESIDUALS. PROVIDES 2160 KCAL, 90 G PRO, 1097 ML FREE WATER. NEEDS: 3669-2903 KCAL, 78-140 G PRO D - DIFFICULTY SWALLOWING R/T NEUROMUSCULAR DYSFUNCTION AEB SEVERE TBI, NEED FOR ENTERAL NUTRITION. I - GOAL FOR ENTERAL NUTRITION TOLERANCE. REC CHANGING TF TO JEVITY 1.5 @ 65 ML/HR TO PROVIDE 2340 KCAL, 100 G PRO, 1186 ML FREE WATER W/ 200 ML WATER Q6 HRS TO INCREASE FIBER INTAKE. RN AWARE OF RECS M/E - WILL MONITOR POC, TF F/U IN 2-5 DAYS.
--- NOTE | 2017-01-02 14:01 | NUR ---
Significant Event: Does not open eyes. PERRLA. Decorticate in upper extremities, withdraws in lower extremities. Spontaneous movement in all extremities L) more then R). ICP/Ventric intact, opened x1 at this time. On Cooling blanket, max temp 99.8. Labetalol given x1. Trach cares provided, currently in CPAP 40% FIO2, flipped back into SIMV this am due to apnea. PEG tube infusing Osmolite at 60 ml/hr, q6h H20 flushes 200 ml, residuals 0. BM x1 this shift, loose. R) PICC double lumen infusing NS at 10 ml/hr, ampicillin intermittently. Repositioned throughout shift. Bathed this shift, pericares provided. Follow up: monitor.
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
--- NOTE | 2017-01-03 04:58 | NUR ---
Pt in CPAP/PS, 01/09 last night for about 4hrs. His ICP and EtCO2 were increased, so vent mode was changed back to SIMV. EtCO2 back down to lower 30s and ICP improved. BrSs coarse t/o, diminished bases. Suctioned large amounts of bloody secretions from trach, secretions have become more cream in color this AM. Also at beginning of shift there was increased bloody drainage around trach site, MD aware. Pt placed back into CPAP/PS this AM, continue as tolerated.
--- NOTE | 2017-01-03 05:53 | NUR ---
Significant Event: MORE RESTLESS OVERNIGHT. THRASHING, PULLED ETT OFF TRACH, VERY RIGID, LIFTING L) LEG OFF OF BED. PLACED RESTRAINT TO L) WRIST. GAVE FENTANYL 50MCG IVP X1, DID NOT REST AFTER. ICP 6-24. OPENED VENTRIC X1, 15ML CLEAR CSF DRAINED. DOES NOT FOLLOW COMMANDS, EYES DEVIATED TO R) AT TIMES. HR 80-110'S. SBP 110-150'S. TMAX OF 100.7. COOLING BLANKET OFF/ON. IN/OUT OF CPAP OVERNIGHT. WENT BACK INTO A RATE WHEN ETCO2 40'S, ICP 20'S, RR 30'S. LUNG SOUNDS CLEAR AFTER SECRETIONS. HAD BLOODY SPUTUM FROM ETT AND LARGE AMOUNTS OF BLOODY DRAINAGE AROUND TRACH. NOTIFIED DR. MIKE, NO NEW ORDERS. BLEEDING DECREASED TOWARD AM. MAX RESIDUAL OF 35ML. NO BM OVERNIGHT. GOOD UOP. TURNED Q2HR. Follow up: CONTINUE TO MONITOR.
[2017-01-03 06:11] LABS: ANION GAP 9.9 (10.0-19.0); BLOOD UREA NITROGEN 17 mg/dL (6-24); CALCIUM 8.5 mg/dL (8.5-10.5); CHLORIDE 106 mMol/L (96-110); CO2 27 mMol/L (22-32); CREATININE 0.8 mg/dL (0.6-1.3); ESTIMATED GFR (MDRD EQUATION) > 60; POTASSIUM 3.9 mMol/L (3.7-5.1); SODIUM 139 mMol/L (135-145)
[2017-01-03 06:35] LABS: BASOPHIL # 0.1 K/uL (0.0-0.2); BASOPHIL % 0.8 %; EOSINOPHIL # 0.2 K/uL (0.0-0.5); EOSINOPHIL % 1.6 %; HEMATOCRIT 33.4 % (37.0-53.0); HEMOGLOBIN 11.1 g/dL (12.0-17.0); IMMATURE GRANULOCYTE # 0.1 K/uL (0.0-0.3); LYMPHOCYTE # 1.8 K/uL (0.8-4.0); LYMPHOCYTE % 15.2 %; MCHC 33.2 gm/dL (32.0-36.5); MCV 96.3 fl (83.0-98.0); MONOCYTE # 0.8 K/uL (0.0-1.0); MONOCYTE % 6.6 %; MPV 10.5 fl (9.4-12.4); NEUTROPHIL % 74.8 %; NRBC % 0 /100WBC (0-0.00); PLATELET COUNT 388 K/uL (150-450); RBC 3.47 M/uL (4.00-6.00); RDW-CV 12.1 % (11.9-14.6); WBC 12.1 K/uL (4.0-11.0)
--- NOTE | 2017-01-03 10:13 | NUR ---
ST note - RN reports no change in responsiveness or ability to follow commands. Plan - continue to monitor and proceed w/ evaluation if more responsvie. 01/03/17 Ritu OLEARY MS CCC/FORMING MACHINE UPKEEP MECHANIC HELPER
--- NOTE | 2017-01-03 12:47 | NUR ---
Introduced self and role of care management to pt's mother. I did explained I am following why Katie is out and looking more like he will not be ready till next week with the ICP/Ventric in. I did give her information on [facility] and what to bring etc. WIll continue to follow.
[2017-01-04 05:49] LABS: ANION GAP 10.8 (10.0-19.0); BLOOD UREA NITROGEN 18 mg/dL (6-24); CALCIUM 8.4 mg/dL (8.5-10.5); CHLORIDE 105 mMol/L (96-110); CO2 28 mMol/L (22-32); CREATININE 0.9 mg/dL (0.6-1.3); ESTIMATED GFR (MDRD EQUATION) > 60; POTASSIUM 3.8 mMol/L (3.7-5.1); SODIUM 140 mMol/L (135-145)
[2017-01-04 05:54] LABS: BASOPHIL # 0.1 K/uL (0.0-0.2); BASOPHIL % 0.9 %; EOSINOPHIL # 0.2 K/uL (0.0-0.5); EOSINOPHIL % 1.7 %; HEMATOCRIT 30.2 % (37.0-53.0); HEMOGLOBIN 10.2 g/dL (12.0-17.0); IMMATURE GRANULOCYTE # 0.1 K/uL (0.0-0.3); IMMATURE GRANULOCYTE % 0.7 %; LYMPHOCYTE # 2.2 K/uL (0.8-4.0); LYMPHOCYTE % 21.2 %; MCH 32.5 pg (27.0-34.0); MCHC 33.8 gm/dL (32.0-36.5); MCV 96.2 fl (83.0-98.0); MONOCYTE # 0.7 K/uL (0.0-1.0); MONOCYTE % 6.8 %; MPV 10.6 fl (9.4-12.4); NEUTROPHIL % 68.7 %; NRBC % 0 /100WBC (0-0.00); PLATELET COUNT 397 K/uL (150-450); RBC 3.14 M/uL (4.00-6.00); RDW-CV 12.2 % (11.9-14.6); WBC 10.2 K/uL (4.0-11.0)
--- NOTE | 2017-01-04 06:50 | NUR ---
Significant Event: RESTLESS MOST OF NIGHT. PULLING AT TUBES/LEADS. TOOK SELF OFF VENT. DID REST AFTER 0300, LESS RIGID. ICP 4-16. DID NOT OPEN VENTRIC OVERNIGHT. HR DOWN TO 60'S WHEN RESTING THIS AM. TEMP DOWN TO 97.7 THIS AM. TMAX OF 101.4 LAST NIGHT. COOLING BLANKET ON. GAVE PRN MOTRIN X1. BP LOWER THIS AM WHEN RESTING. SIMV OVERNIGHT. SMALL AMOUNT OF BLEEDING AROUND TRACH. MAX RESIDUAL OF 35ML. BM X3. MARGINAL UOP AT TIMES. BATH COMPLETE. Follow up: CONTINUE TO MONITOR. CT OF HEAD TODAY.
--- NOTE | 2017-01-04 11:05 | NUR ---
A-NUTRITION F/U ICP/VENTRIC STILL IN PLACE. CT OF HEAD PLANNED FOR TODAY. TRACH/VENT. PEG. (+)BS; (+)FLATUS. STOOL SOFTENER HELD D/T SEVERAL LOOSE STOOLS, PER RN REPORT. MINIMAL RESIDUALS FROM TF. COOLING BLANKET D/T INCREASED TEMPS. LABS: NA 140, K+ 3.8, GLU 137, BUN 18, FORESTRY BIOLOGY SPECIALIST 0.9 MEDS: LEVAQUIN, DOCU, PRN BOWEL MEDS DIET RX: NPO; 60 ML/HR OSMOLITE 1.5-PROVIDING 2160 KCALS, 90 GM PROTEIN, AND 1097 ML FREE WATER. EST NUTR NEEDS: 1873-7253 KCALS AND 78-140 GM PROTEIN D-AT NUTRITION RISK W/DIFF. SWALLOWING R/T NEUROMUSCULAR DYSFUNCTION AEB SEVERE TBI, PEG PLACEMENT, AND NEED FOR EN. I-RECOMMEND CHANGING TF TO JEVITY 1.5 AT 65 ML/HR W/200 ML WATER FLUSH Q6 HRS. THIS WILL PROVIDE 2340 KCLAS, 100 GM PROTEIN, AND 1186 ML FREE H20 + H20 FLUSHES. M/E-GOAL: CONTINUED TOLERANCE OF TF 1)F/U DIET RX, GI, AND POC IN 3-5 DAYS 2)ASSIST NEEDED
--- NOTE | 2017-01-04 13:59 | NUR ---
I did fax updates to Nancy with [facility] and she stated leave the vent as it is or with cpap trials at this time. WIll hope to get pt there next week pending the progress with the icp/ventric. I did give mom another TBI book and information about [facility] for his . WIll continue to follow.
--- NOTE | 2017-01-04 15:57 | NUR ---
I did call and updated Nancy at [facility] and she stated just to leave the vent how it is and how we are doing cpap and ac modes. I did update Stephanie reguarding this as well. I did give pt's mom some more information on [facility]. WIll continue to follow.
--- NOTE | 2017-01-04 16:40 | NUR ---
PT VENTED ON 30% SATS 96-100%, BREATH SOUNDS SLIGHTLY COARSE THROUGHOUT, SXN A SMALL TO MODERATE AMOUNT OF CREAMY SPUTUMM, ETCO2 34-38 MOST OF THE DAY, PT WAS TAKEN TO CT TODAY, WILL CONTINUE TO MONITOR UNTIL FURTHER NOTICE
--- NOTE | 2017-01-04 16:58 | NUR ---
Significant Event: Patient has hours where he is more active. For most of the day he moves his extremities spontaneously and arms are almost contracture with cares. He is purposeful with his left hand, so he has a restraint on. Ventricostomy has remained closed and a CT of head was done this afternoon. Prior to the CT ICP was low 20's, but we helf off opening the ventric so we could see if there was hyrdocephalus in the CT. Pain meds were given for transport and by the time we got back ICP was back down to low teens. He had 3 large loose BM today so stool softeners have been changed to prn. His parry was removed at 1200. He has not voided yet and if he does not we will do a bladder scan at 1800. Follow up: Continue
[2017-01-05 04:48] LABS: BASOPHIL # 0.1 K/uL (0.0-0.2); EOSINOPHIL # 0.2 K/uL (0.0-0.5); EOSINOPHIL % 1.9 %; HEMATOCRIT 31.7 % (37.0-53.0); HEMOGLOBIN 10.6 g/dL (12.0-17.0); IMMATURE GRANULOCYTE # 0.1 K/uL (0.0-0.3); IMMATURE GRANULOCYTE % 0.5 %; LYMPHOCYTE % 18.1 %; MCHC 33.4 gm/dL (32.0-36.5); MCV 95.8 fl (83.0-98.0); MONOCYTE # 0.8 K/uL (0.0-1.0); MPV 10.4 fl (9.4-12.4); NEUTROPHIL # (ANC) 7.8 K/uL (1.4-9.0); NEUTROPHIL % 71.5 %; NRBC % 0 /100WBC (0-0.00); RBC 3.31 M/uL (4.00-6.00); RDW-CV 12.1 % (11.9-14.6)
[2017-01-05 04:50] LABS: PLATELET COUNT 507 K/uL (150-450)
--- NOTE | 2017-01-05 04:53 | NUR ---
Significant Event: ICP/VENTRIC, CLOSED THROUGHOUT SHIFT. ICP'S 8-16. CONTIUES TO BE PURPOSEFUL WITH LEFT UPPER EXTREMITY. SPONTANEOUS MOVEMENT NOTED TO ALL EXTREMITIES. GAG INTACT. COUGH SPONTANEOUS AND INDUCED WITH MODERATE AMOUNTS OF WHITE/CREAMY SECRETIONS. TRACH, SIMV 16/600/5/10/30%. ETCO2 32-39% TEMPMAX 100.1 TYMPANIC. HR 80-90'S. CPP GOAL 75-100. PEG TUBE WITH OSMOLITE 1.5 AT GOAL 60ML/HR NO RESIDUALS THIS SHIFT. Q6HR 200ML FREE WATER FLUSHES. STRAIGHT CATH THIS SHIFT FOR 625ML. NO BM THIS SHIFT. Follow up: REINSERT ANTOINE?
--- NOTE | 2017-01-05 12:33 | NUR ---
ST went to see Pt. Nursing reported Pt reamins unresponsive. Will check back for responsiveness.
--- NOTE | 2017-01-05 18:58 | NUR ---
Significant Event: ICP increased through the afternoon and after 1500 would not drop below 20. Ventric was opened and CSF was cloudy with white chunks. Dr. Huff and Dr. Hi notified. CSF was sent for culture and Manitol was given x1. ICP is slowly coming down. Temperature max was 99.9. Ventric was opened later in the shift and CSF was clear again. Follow up: CSF follow up
--- NOTE | 2017-01-06 05:13 | NUR ---
Significant Event: Rectal temp probe placed for more accurate temps. Temp max 100.2, scheduled Tylenol given. was rounding approx 1999, when pt assessmt revealed bilat eyes Deviating up and to the right. Orders received to leave ventric opened. Ventric opened per order and total 150ml was drained of clear csf. Pt active most of shift, a few hours where pt had fallen into deep sleep and drowsy and difficult to awaken, with bilat arms much more relaxed. When pt awoke he was hypertensive, overbreathing vent significantly, became diaphoretic, increased HR. Scheduled tylenol given with x1 Fentanyl PRN. Pt resting better now. Up to chair this am. Adequate uop. Follow up:
[2017-01-06 05:15] LABS: BASOPHIL # 0.1 K/uL (0.0-0.2); BASOPHIL % 1.4 %; EOSINOPHIL # 0.2 K/uL (0.0-0.5); EOSINOPHIL % 2.1 %; HEMATOCRIT 31.7 % (37.0-53.0); HEMOGLOBIN 10.7 g/dL (12.0-17.0); IMMATURE GRANULOCYTE % 0.5 %; LYMPHOCYTE # 1.6 K/uL (0.8-4.0); LYMPHOCYTE % 18.4 %; MCHC 33.8 gm/dL (32.0-36.5); MCV 94.9 fl (83.0-98.0); MONOCYTE # 0.5 K/uL (0.0-1.0); MONOCYTE % 6.3 %; MPV 10.5 fl (9.4-12.4); NEUTROPHIL % 71.3 %; NRBC % 0 /100WBC (0-0.00); PLATELET COUNT 535 K/uL (150-450); RBC 3.34 M/uL (4.00-6.00); RDW-CV 12.1 % (11.9-14.6); WBC 8.4 K/uL (4.0-11.0)
[2017-01-07 03:47] LABS: HEMATOCRIT 33.5 % (37.0-53.0); HEMOGLOBIN 11.3 g/dL (12.0-17.0); MCH 32.3 pg (27.0-34.0); MCHC 33.7 gm/dL (32.0-36.5); MCV 95.7 fl (83.0-98.0); MPV 10.2 fl (9.4-12.4); PLATELET COUNT 723 K/uL (150-450); RDW-CV 12.1 % (11.9-14.6); WBC 9.7 K/uL (4.0-11.0)
[2017-01-07 04:06] LABS: ABSOLUTE NEUTROPHIL CT (ANC) 7.4 K/uL (1.4-9.0); BANDED NEUTROPHIL # 1.2 K/uL (0.0-0.1); BANDED NEUTROPHILS % 12 %; LYMPHOCYTE # 1.6 K/uL (0.8-4.0); LYMPHOCYTE % 16 %; MONOCYTE # 0.4 K/uL (0.0-1.0); SEGMENTED NEUTROPHIL # 6.2 K/uL (1.4-9.0); SEGMENTED NEUTROPHIL % 64 %
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
--- NOTE | 2017-01-07 05:41 | NUR ---
PT COTINUES TO HAVE VENTRIC OPEN AT ALL TIMES, CLOSED ONCE PER HOUR TO MEASURE ICP. TOTAL CSF DRAINAGE WAS 154 ML OF CLEAR FLUID. ICP RANGED FROM 0-4. CONTINUES TO REQUIRE LUE TO BE RESTRAINED FOR SAFETY DUE TO GRABBING AT TRACH/PEG/LEADS/ANTOINE. L) SIDE REMAINS STRONGER AND MORE ACTIVE THAN R) SIDE. PUPILS REMAIN EQUAL AND REACTIVE. DOES NOT FOLLOW COMMANDS. PT OPENED EYES ONE TIME DURING SHIFT WHEN TURNED TO CHANGE BED LINEN. SBP 90S-110S WHILE RESTING, CPP 72-109; WHEN CPP WAS 109, PT WAS AGITATED AND COUGHING. RECHECK CPP WAS 81. TMAX 100.0F. TOLERATING TF WELL, NO BM THIS SHIFT. UOP APPROPRIATE. CAPS TO PICC LINE CHANGED THIS SHIFT. HARLEY BASURTO RN
--- NOTE | 2017-01-07 10:39 | NUR ---
A-NUTRITION F/U ICP/VENTRIC; VENTRIC IS OPEN AT ALL TIMES. DOES NOT FOLLOW COMMANDS. TRACH/PEG. (+)BM. NO NEW LABS MEDS: SYMMETREL SYRUP DIET RX: NPO; 65 ML/HR JEVITY 1.5 (PROVIDING 2340 KCALS, 100 GM PROTEIN, AND 1186 ML FREE WATER. PER ROUNDS, PT IS TOLERATING TF WITHOUT DIFF. EST NUTR NEEDS: 5704-6649 KCALS AND 78-140 GM PROTEIN D-AT NUTRITION RISK W/DIFF. SWALLOWING R/T NEUROMUSCULAR DYSFUNCTION AEB SEVERE TBI, NEED FOR ENTERAL NUTRITION. I-CONTINUE CURRENT DIET RX M/E-GOAL: CONTINUED TF TOLERANCE 1)F/U TF, LABS, AND POC IN 3-5 DAYS 2)ASSIST NEEDED
--- NOTE | 2017-01-07 14:07 | NUR ---
Touched base with patient sister at bedside. Will update [facility] and wait and see when ICP/Ventric can come out/plan for increased ICP. Denies questions at this time.
--- NOTE | 2017-01-07 16:10 | NUR ---
PATIENT VENTRIC CONTINUES TO BE OPEN, D/C'D CPP MONITORING. EYE MOVEMENT CONTINUES TO BE ROVING. PATIENT NON RESPONSIVE, WITH INCREASED PURPOSEFUL MOVEMENT NOTED WITH LEFT SIDE, CONTINUES TO BE NON-PURPOSEFUL WITH RIGHT. PATIENT STAYED IN SIMV MODE THROUGHOUT DAY, DID NOT TRIAL CPAP. TUBE FEEDS CHANGED TO JEVITY 1.5 AND RATE INCREASED TO 65ML/HR. RESIDUALS LESS THAN 5ML AT EACH ASSESSMENT. BLISTER IDENTIFIED ON LEFT 5TH FINGER. RESTRAINT CHANGED FROM WRIST RESTRAINT ON LEFT TO MITTEN RESTRAINT, PATIENT TOLERATING WELL. PURPLE PORT ON PICC LINE SLUGGISH WITH NO BLOOD RETURN. CATH FLOW ORDERED FROM PHARMACY AND WILL ADMINISTER WHEN ARRIVES. TOTAL FLUID FROM ICP =139. T-MAX FOR THIS SHIFT 99.9.
--- NOTE | 2017-01-07 17:12 | NUR ---
PT VENTED ON 30% SATS 98-100%, BREATH SOUNDS SLIGHTLY COARSE THROUGHOUT, SXN A MODERATE TO LARGE AMOUNT OF CREAMY SPUTUM, ETCO2 30-34 MOST OF THE DAY, WILL CONTINUE TO MONITOR UNTIL FURTHER NOTICE
--- NOTE | 2017-01-08 04:40 | NUR ---
Pt remains trach and pegged. No tracking no commands, rigid, grinds teeth, to stimulation pt will decorticate the upper extremities. Pt is very rigid and restless. Ventric is closed at 2116. Suctioning large amounts of respiratory secretions. Tolerates jevity at 65 ml/h and q 6 hour water flushes. Abdominal binder is placed to prevent patient from pulling out peg. 2 periphereal iv's started because picc is clotted. Cath Shen is administered to both lumens of the PICC ( red port remains clotted after a 2 hour dwell, purple port remains sluggish, with blood return) Bath is completed. pt continues to wear pit [place] J. No ICP issues. Plan is to dc the ICP today and work to going to [facility]. Continuing with q 1hour neuros.
--- NOTE | 2017-01-08 04:46 | NUR ---
PT. ON VENT 30 FIO2 WITH SATS 95-99%. ETCO2 32-38. BREATH SOUNDS ARE SLIGHTLY COARSE T/O AND CLEAR SOME WITH SUCTION. SUCTIONED A MODERATE AMOUNT OF THIN CREAMY SECRETIONS. CONTINUE TO MONITOR UNTIL FURTHER NOTICE.
[2017-01-08 05:22] LABS: BASOPHIL # 0.1 K/uL (0.0-0.2); BASOPHIL % 1.1 %; EOSINOPHIL # 0.3 K/uL (0.0-0.5); EOSINOPHIL % 2.3 %; HEMOGLOBIN 11.5 g/dL (12.0-17.0); IMMATURE GRANULOCYTE % 0.3 %; MCH 31.7 pg (27.0-34.0); MCHC 32.9 gm/dL (32.0-36.5); MCV 96.4 fl (83.0-98.0); MONOCYTE # 0.8 K/uL (0.0-1.0); MONOCYTE % 6.8 %; MPV 10.3 fl (9.4-12.4); NEUTROPHIL # (ANC) 8.5 K/uL (1.4-9.0); NEUTROPHIL % 72.5 %; NRBC % 0 /100WBC (0-0.00); PLATELET COUNT 737 K/uL (150-450); RBC 3.63 M/uL (4.00-6.00); RDW-CV 12.2 % (11.9-14.6); WBC 11.7 K/uL (4.0-11.0)
[2017-01-08 05:41] LABS: ANION GAP 13.1 (10.0-19.0); BLOOD UREA NITROGEN 18 mg/dL (6-24); CALCIUM 8.8 mg/dL (8.5-10.5); CHLORIDE 106 mMol/L (96-110); CO2 25 mMol/L (22-32); CREATININE 0.9 mg/dL (0.6-1.3); ESTIMATED GFR (MDRD EQUATION) > 60; POTASSIUM 4.1 mMol/L (3.7-5.1); SODIUM 140 mMol/L (135-145)
--- NOTE | 2017-01-08 12:35 | NUR ---
Talked with Nancy from [facility] yesterday, reviewed chart and talked with patient nurse and faxed update to [facility] today. Anticipate patient getting ICP/Ventric out tonight. If so and remains stable tomorrow may be ready for discharge to [facility] toward end of week. Will follow.
--- NOTE | 2017-01-08 13:24 | NUR ---
SIGNIFICANT EVENTS/SHIFT SUMMARY: PATIENT DOES NOT OPEN EYES SPONTANEOUSLY, TO VOICE, OR TO PAIN. EYES DEVIATED UPWARDS. INVOLUNTARY, RAPID EYE MOVEMENTS NOTED. EYE LID FLICKERING OBSERVED AT TIMES. PUPILS EQUAL AND REACTIVE. PATIENT DOES NOT NOD YES/NO TO ANY QUESTIONS. PATIENT DOES NOT FOLLOW ANY COMMANDS. BILATERAL UPPER EXTREMITIES DECORTICATE POSTURING. SPONTANEOUS MOVMVENTS NOTED IN BILATERAL UPPER EXTREMITIES. PATIENT MOVES BILATERAL LOWER EXTREMITIES SPONTANEOUSLY. BENDING OF KNEES NOTED IN RESPONSE TO PAINFUL STIMULI IN LOWER EXTREMITIES. ICP/VENTRIC INTACT. VENTRIC KEPT CLOSED AT ALL TIMES. ICP 6-10 THROUGHOUT THE DAY. CALCULATED CPP >75 AT ALL TIMES. NO DRAINAGE NOTED AROUND ICP/VENTRIC SITES. PATIENT HAS BEEN IN SINUS RHYTHM WITH BUNDLE BRANCH BLOCK. HR 70-90S. PULSES PALPABLE THROUGHOUT. GENERALIZED EDEMA PRESENT. BP STABLE, SBP 110S-150S. MAX TEMP OF 99.6 SO FAR TODAY. FAN IN ROOM. PATIENT CONTINUES TO REQUIRE VENT SUPPORT. TRACH INTACT, NO COMPLICATIONS. OVERBREATHS SIMV MODE VENT SETTINGS FIO2 30%, TV 650, PEEP 5, RR 16. ETCO 30-40. SPONT COUGH, PRODUCTIVE AT TIMES. ORAL CARES COMPLETED EVERY 2 HOURS. BOWEL SOUNDS ACTIVE. 2 MODERATE SIZED LOOSE BROWN BOWEL MOVEMENTS TODAY. PATIENT TOLERATING TUBE FFEDING THROUGH PEG TUBE WELL, OSMOLLITE INFUSING THROUGH PEG TUBE AT 65ML/HR, MINIMAL RESIDUALS. ANTOINE INTACT, ADEQUATE URINE OUTPUT. PERCARES COMPLETED. NO NEW SKIN ISSUES NOTED. R) PICC CURRENTLY FLUSHED WELL WITH GOOD BLOOD RETURN, NO COMPLICATIONS, SALINE LOCKED. L) PIV FLUSHES WELL, SALINE LOCKED. FOLLOW UP: POSSIBLE REMOVAL OF ICP/VENTRIC PER DR CONRAD TODAY, CONTINUE WITH CARES, MONITOR NEURO, CARDIO AND RESP STATUS, REPORT CHANGES.
--- NOTE | 2017-01-08 17:00 | NUR ---
NO CHANGES SINCE LAST WRITTEN SHIFT SUMMARY AT [id number] HOUR. BATH COMPLETED
--- NOTE | 2017-01-08 17:11 | NUR ---
PT VENTED ON 30% SATS 98-100%, BREATH SOUNDS SLIGHTLY COARSE THROUGHOUT, SXN A LARGE AMOUNT OF CREAMY THIN SPUTUM, ETCO2 30-34 MOST OF THE DAY, WILL CONTINUE TO MONITOR UNTIL FURTHER NOTICE
[2017-01-09 04:36] LABS: HEMATOCRIT 35.2 % (37.0-53.0); HEMOGLOBIN 11.8 g/dL (12.0-17.0); MCH 31.9 pg (27.0-34.0); MCHC 33.5 gm/dL (32.0-36.5); MCV 95.1 fl (83.0-98.0); MPV 10.2 fl (9.4-12.4); PLATELET COUNT 773 K/uL (150-450); RDW-CV 12.1 % (11.9-14.6); WBC 8.8 K/uL (4.0-11.0)
--- NOTE | 2017-01-09 04:58 | NUR ---
PT. ON VENT AT 30% FIO2 WITH SATS 95-98%. ETCOW 36-40. BREATH SOUNDS ARE SLIGHTLY COARSDE T/O AND CLEAR A LITTLE WITH SUCTION. SUCTIONED A MODERATE TO LARGE AMOUNT OF THIN WHITE SECRETIONS. WILL CONTINUE TO MONITOR UNTIL FURTHER NOTICE.
--- NOTE | 2017-01-09 05:25 | NUR ---
patient continue to move spontanuous all extremities with posturing like,will not follow simple commands,pupils are 3mm rounded and equal,clear upper lungs sound diminished on the bases,SIMV VENT MODE FIO2=30%,P5JRS=68%,TOLERATE T.F WITH 1 LOOSE STOOL MODERATE AMOUNT. FOLLOW UP:CONTINUE TO MONITOR PATIENT'S EMODYNAMIC AND NEURO STATUS CLOSELY.
[2017-01-09 06:17] LABS: LYMPHOCYTE # 2.3 K/uL (0.8-4.0); LYMPHOCYTE % 26 %; MONOCYTE # 0.6 K/uL (0.0-1.0); SEGMENTED NEUTROPHIL # 5.1 K/uL (1.4-9.0); SEGMENTED NEUTROPHIL % 58 %
[2017-01-09 06:18] LABS: ABSOLUTE NEUTROPHIL CT (ANC) 5.4 K/uL (1.4-9.0); BANDED NEUTROPHIL # 0.3 K/uL (0.0-0.1); BANDED NEUTROPHILS % 3 %
--- NOTE | 2017-01-09 15:13 | NUR ---
Faxed updates to [facility] and talked with Nancy there, they have started precert process with pt insurance so just waiting to hear from them approval before we arrange a date/time to go to [facility]. Possibly tomorrow but more likely Saturday. Updated Dr Hi and Dr Novoa. Will follow.
--- NOTE | 2017-01-09 15:36 | NUR ---
TRIED CPAP X2 TODAY. ONCE THIS AM AND RR INCREASED WITH A DECREASED TV. PLACED BACK ON RATE. ONCE THIS AFTERNOON AND PT HAD PERIODS OF APNEA. PLACED BACK ON RATE.
--- NOTE | 2017-01-09 18:49 | NUR ---
Significant Event:PATIENT REMAINS UNABLE TO FOLLOW COMMANDS X4 EXTREMETIES, PURPOSEFUL MVMT, PERRLA, NO TRACKING NOTED, OPENS EYES SPONTANEOUSLY. SPASTIC ET RIDGID. LUE MITT RESTRAINT. TRACH TO VENT SIMV MODE, TOLERATED CPAP MODE FOR A FEW HOURS. DC'D ANTOINE PER ORDERS, SC FOR 650 AFTER NO VOID FOR 6 HOURS. OLD ICP VENTRIC SITE ORDER BUILDER LOADER WITH SUSANNE INTACT. Follow up: TRANSFER CARES TO [facility]
--- NOTE | 2017-01-09 19:11 | NUR ---
PATIENT WAS PLACED IN CPAP/PS AT 1900 AND CHANGED BACK TO SIMV AT 1903. PATIENT HAD A SPELL OF APNEA AND TIDAL VOLUMES OF 150-200. DID NOT TOLERATE.
--- NOTE | 2017-01-10 02:51 | NUR ---
At 0100 check in CPAP/PS of 01/09, pt did not make an attempt to breathe during this trial with 2 apnea episodes and heart rate decreasing below 60, he was placed back in SIMV.
--- NOTE | 2017-01-10 04:06 | NUR ---
Significant Event: No neuro changes. Withdraws x4, decorticate in BUEs, possibly purposeful in LUE. Withdraws in BLEs. Opened eyes spontaneously x1, slightly deviated upward. No cardiac events, BP stable, no PRNs given. SIMV on vent, tracheostomy cares done. Unsuccessful with CPAP trial. Lung sounds slightly coarse. Thick creamy secretions with suctioning. Bowel sounds active, no bm this shift. PEG tube intact, tolerating TF well. Mcarthur re-inserted this shift r/t retention per MD order. Bladder scan 433ml prior to insertion. No skin changes. Afebrile. PICC insertion site slightly red, SL'd. Caps/dressing changed this shift. Follow up: Continue, [facility] transfer this week planned.
[2017-01-10 05:26] LABS: BASOPHIL # 0.2 K/uL (0.0-0.2); BASOPHIL % 1.6 %; EOSINOPHIL # 0.3 K/uL (0.0-0.5); EOSINOPHIL % 3.4 %; HEMATOCRIT 33.5 % (37.0-53.0); HEMOGLOBIN 11.1 g/dL (12.0-17.0); IMMATURE GRANULOCYTE % 0.3 %; LYMPHOCYTE # 2.3 K/uL (0.8-4.0); LYMPHOCYTE % 22.4 %; MCH 31.9 pg (27.0-34.0); MCHC 33.1 gm/dL (32.0-36.5); MCV 96.3 fl (83.0-98.0); MONOCYTE # 0.7 K/uL (0.0-1.0); MONOCYTE % 7.1 %; MPV 10.8 fl (9.4-12.4); NEUTROPHIL # (ANC) 6.6 K/uL (1.4-9.0); NEUTROPHIL % 65.2 %; NRBC % 0 /100WBC (0-0.00); PLATELET COUNT 700 K/uL (150-450); RBC 3.48 M/uL (4.00-6.00); RDW-CV 12.4 % (11.9-14.6); WBC 10.1 K/uL (4.0-11.0)
--- NOTE | 2017-01-10 09:38 | NUR ---
Reviewed chart and faxed last 3 respiratory therapy notes and last 2 nursing shift summaries to [facility] this am (from late afternoon and this morning) so they can continue to work on precert with pt insurance, goal to get pt to [facility].
--- NOTE | 2017-01-10 09:57 | NUR ---
A - NUTRITION FOLLOW-UP ICP/VENTRIC D/C'D 01/08. TRACH/PEG. PLAN TO TX TO [facility] THIS WEEK. LABS: GLU 118, PRE-ALB 46. MEDS: SENNA. DIET: TUBE FEEDING W/ JEVITY 1.5 AT 65ML/HR WITH 200ML WATER FLUSHES Q6. LAST RECORDED RESIDUAL WAS 30ML, TOLERATING WELL. 3-DAY AVE OF TF MET 100% OF PT'S MIN EST NEEDS. EST NEEDS: 4384-4196 KCAL, 78-140 GRAMS PROTEIN, FLUID NEEDS: 1ML/KCAL D - AT NUTRITION RISK W/ DIFFICULTY SWALLOWING R/T NEUROMUSCULAR DYSFUNCTION EVIDENCED BY SEVERE TBI AND NEED FOR ENTERAL NUTRITION. I - CONTINUE CURRENT TF. M/E - GOAL: CONTINUE TO TOLERATE TF AND MEET >75% OF PT'S NEEDS IN 3-5 DAYS. 1) F/U W/ TF, LABS AND POC.
--- NOTE | 2017-01-10 13:10 | NUR ---
d-pt is cpap10/5 for 6 hrs, x2 apneic periods. tv decreased and rr increased. placed back in simv at 1300
--- NOTE | 2017-01-10 14:02 | NUR ---
Significant Event:Opens eyes spontaneously, but infrequently, no tracking observed. Flexes right upper extremity and withdraws to pain, right lower extremity withdraws to pain camilla positive Babinski. Left upper extremity is purposeful, pushing on trach, so restraint changed to wrist. Repetitively rubbing left elbow over PEG, so binder needs to stay on at all times. SBP in 110's. Trials on CPAP today. Jevity 1.5 tube feeding infusing at 65 ml/h. 200 ml water flush every 6 hours, no residuals. Rank smelling flatus, frequently, but no BM today, last was 01/09/17. Mcarthur patent. Scabs to r) knee, Sutures and ramya to r) frontal area of head. Bruises to R) liriano, L) ear. Turned q2h, foot drop boots on. Family updated at the bedside. Follow up:[facility] tomorrow.
--- NOTE | 2017-01-10 14:47 | NUR ---
Talked with Nancy from [facility] a little bit ago, no word yet from patient insurance with approval, they did fax them the new information they received this morning early. She will check with them again and let me know as soon as she knows something. Talked with RT Elza here and they would prefer a 0800 or 0900 transfer time, can't set anything up until we get approval but will request that when we get the go ahead.
--- NOTE | 2017-01-10 16:02 | NUR ---
Received call from Nancy at [facility], she reports [facility] denied LTAC request and we discussed their reasoning why, then I got a call from Theodora at [facility] and I discussed pt case with her and that our physician would love to discuss this with their physician that denied the LTAC and she did give me peer to peer review number. I again faxed updated clinical information to Theodora at [facility] now. I called Dr Hernandes and he called peer to peer review number, is an automated system and had to leave a message to call him back, requested I get a direct phone number to physician if I can, I called Theodora at [facility] back and left a voicemail with that request. I then called peer to peer review number and also initiated a request that physician reviewer Dr Arredondo at [facility] call Dr Hernandes back and if he doesn't happen to answer to please leave him a direct number to call him back. Updated Dr Hernandes, [facility] directed they approved 4 more acute days and for [facility] to start LTAC referral again on Saturday. I let Elza RT know and also [facility] know. Will let pt and family know.
--- NOTE | 2017-01-10 18:54 | NUR ---
Patient was in CPAP/PS 5/10 from [id number]. Patient's tidal volumes were in the mid 400's but his respiratory rate increase to 40-45 bpm. Changed back to SIMV
--- NOTE | 2017-01-11 00:58 | NUR ---
Patient was in CPAP/PS 5/10 for approximately 1 minute. Never initiated a breath. Apnea alarm was reset twice and no breath taken. Switched back to SIMV.
--- NOTE | 2017-01-11 04:06 | NUR ---
PATIENT HAS REMAINED IN SIMV MOST OF THE SHIFT. CPAP WAS ATTEMPED AT THE 1900 AND 0100 CHECKS. AT 1900 THE PATIENT'S RESPIRATORY RATE WAS IN THE 40'S AFTER THE FIRST TWO MINUTES. AT THE 0100 CHECK THE PATIENT NEVER INITIATED A BREATH. THE APNEA ALARM SOUNDED AND TRIGGERED THE ONLY BREATHS THE PATIENT TOOK. THE PATIENT'S BREATH SOUNDS HAVE BEEN MOSTLY CLEAR AND DIMINISHED BUT OCCASIONALLY SLIGHTLY COARSE. SUCTIONING SMALL TO MODERATE AMOUTNS OF THIS CREAM SPUTUM. WILL CONTINUE TO MONITOR.
--- NOTE | 2017-01-11 05:37 | NUR ---
PT OPENING EYES MORE FREQUENTLY THIS SHIFT. STILL DOES NOT FOLLOW COMMANDS. NEURO ASSESSMENT CONSISTENT WITH PRIOR SHIFTS OTHERWISE. NO ISSUES WITH BP OR HR, TMAX 99.8 FOR THIS RN. CPAP TRIAL X1 THIS SHIFT WITH NO TRIGGERING BREATHS PER RT. LATE IN SHIFT, PT BECAME TACHYPNIC AND RESTLESS; PRN FENTANYL GIVEN X2 DOSES. RELIEF NOTED AFTER SECOND DOSE ADMINISTERED. NO BM, CONTINUES TO HAVE LARGE AMOUNTS OF FOUL SMELLING FLATUS. UOP ADEQUATE, TAPERING OFF AT END OF SHIFT. HARLEY BASURTO RN
--- NOTE | 2017-01-11 09:00 | NUR ---
D:Patient respirations on CPAP are 58 and tidal volume is 218, with increased heart rates in the 110's. Reported to RT, Ashlyn.
--- NOTE | 2017-01-11 15:05 | NUR ---
I got a call from Nancy at [facility] and they have LTAC approval from insurance. They state can take her on Saturday. I will set up the ambulance for 100am. I did call [place] with EMS and also Elza with RT and all will be set up for a go. I did call Dr Hernandes and updated him and he will do orders, I spoke with DR Hi and also updated Evelyn RN. Orders on the chart and packet started. I called Carine to let her know but had to leave a vm. WIll continue to follow.
--- NOTE | 2017-01-11 16:38 | NUR ---
Significant Event:Moves left upper extremity purposefully, so hand has mitten and soft wrist restraint. Left lower leg moves spontaneously. R) lower extremity is weaker than the left, moves spontanseously, and a little more often than yesterday. R) upper extremity is flexed at all times, able to extend passively. Opens eyes more often today, with deviation to the right and upward. Able to track to the right for breif moments. Observed smiling at times. No verbal response with trach. Up to recliner with mechanical lift and 2 assist. HR in 90's SBP's in 100's to 120's. Remains in SIMV most of the day, failed CPAP trials, at 0900, observed Respiratory rate 58 and tidal volume 219 with heart rates in 90's to 100's. Jevity tube feeding @ 65ml/h per PEG at goal, no residuals. Lots of very foul smelling flatus. NO BM today. Mcarthur patent. Turned in bed every 2 hours with 2 assist. Foot drop boot to R) foot on at all times. [place] J collar on at all times. Taken to CT for non contrast CT of c spine. Pain controlled with scheduled tylenol and Oxy. last at 1400. , mother and sister here today to visit, Updated about plan to move to [facility] on Saturday @ 1000. Follow up:
--- NOTE | 2017-01-12 04:40 | NUR ---
CPAP trial at 1900 lasted until 2029 when RR began to drop and VE was not adequate. 010 CPAP trial has been going well, pt continues in CPAP 01/09. Vts 500s, RR teens when resting, mid 20s when more awake and moving. EtCO2 35-39 this shift. BrSS clear with suctioning of small-moderate amounts of cream colored secretions from trach. Continue CPAP as tolerated.
--- NOTE | 2017-01-12 05:19 | NUR ---
Significant Event: Patient opens eyes to sound at times, opens consistantly to pain. Pupils equal and reactive. Left extremities move spontaneously and strong. Mitten and wrist restraint to left upper extremity continue. Right lower extremity with minimal spontaneous movement and right upper extremity withdraw. Withdraws in all extremities. Peg tube with Jevity at 65 ml/hour. Max residule of 50 ml. Right PICC flushes well with good blood return noted. [place]ur patent with good urine output noted. Trach with vent at 30% FIO2, tolerated CPAP for much of shift. Follow up: continue to monitor
[2017-01-12 05:34] LABS: ANION GAP 11.9 (10.0-19.0); BLOOD UREA NITROGEN 17 mg/dL (6-24); CALCIUM 8.8 mg/dL (8.5-10.5); CHLORIDE 107 mMol/L (96-110); CO2 27 mMol/L (22-32); CREATININE 0.9 mg/dL (0.6-1.3); ESTIMATED GFR (MDRD EQUATION) > 60; POTASSIUM 3.9 mMol/L (3.7-5.1); SODIUM 142 mMol/L (135-145)
[2017-01-12 05:40] LABS: BASOPHIL # 0.1 K/uL (0.0-0.2); BASOPHIL % 1.8 %; EOSINOPHIL # 0.4 K/uL (0.0-0.5); HEMATOCRIT 34.4 % (37.0-53.0); HEMOGLOBIN 11.4 g/dL (12.0-17.0); IMMATURE GRANULOCYTE % 0.4 %; LYMPHOCYTE # 2.2 K/uL (0.8-4.0); LYMPHOCYTE % 28.3 %; MCH 31.9 pg (27.0-34.0); MCHC 33.1 gm/dL (32.0-36.5); MCV 96.4 fl (83.0-98.0); MONOCYTE # 0.6 K/uL (0.0-1.0); MONOCYTE % 7.3 %; MPV 10.9 fl (9.4-12.4); NEUTROPHIL # (ANC) 4.5 K/uL (1.4-9.0); NEUTROPHIL % 57.2 %; NRBC % 0 /100WBC (0-0.00); PLATELET COUNT 623 K/uL (150-450); RBC 3.57 M/uL (4.00-6.00); RDW-CV 12.5 % (11.9-14.6); WBC 7.9 K/uL (4.0-11.0)
--- NOTE | 2017-01-12 16:44 | NUR ---
Significant Event:Alert, opens eyes spontaneously at times, deviating to the right and up, but does "look at" staff for brief moments. Does not track or move look to the left. Left side stronger than the right. Moves left side spontaneously, right side spontaneous movment is more frequent. Flexes right arm, but noticed some relaxation of right arm today. When asked his name, he appeared to attempt to speak. HR in 90's. SBP in 100's. Remains on ventilator in SIMV Fio2 30%. Tolerating tube feeding and flushes. Passing foul flatus, BM with digital check. Schedule pain meds given. Max temp 99.5. Suctioned with small amount of creamy thick sputum. Up to the chair with a lift. L) wrist restraint and L) mitten in use, purposeful attempt to pull at ET tube with left hand. PEG site slightly pink, taped to abdomen. Harrison and sutures to right head, c/d/i. Diaphoretic at all times, reports that this is usual. Follow up:Patient's birthday tomorrow.
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
--- NOTE | 2017-01-13 00:36 | NUR ---
Attempted CPAP/PS trials tonight at 1900: failed due to apnea episodes and at 0030: RR mid 30s and more aggitated. BrSs coarse t/o, suctioning small amounts of thick, cream secretions from trach. EtCO2 27-36. When resting RR at 16 with set rate on vent, but has been mid 20s and into the 30s some tonight with restlessness. Continue per plan of care.
--- NOTE | 2017-01-13 03:38 | NUR ---
Significant Event: Patient is Alert. No significant neuro changes. See neuro assessment. HR'S 70'S-90'S. SBP 100'S. Maps >65. Remains on vent, SIMV Fio2 30%. TF at 65ml/hr,goal. No residuals. Tmax 99.9. Active BS. NO BM during shift. Follow up: continue on current plan of care.
[2017-01-13 04:24] LABS: BASOPHIL # 0.1 K/uL (0.0-0.2); BASOPHIL % 1.1 %; EOSINOPHIL # 0.4 K/uL (0.0-0.5); EOSINOPHIL % 3.2 %; HEMATOCRIT 34.2 % (37.0-53.0); HEMOGLOBIN 11.5 g/dL (12.0-17.0); IMMATURE GRANULOCYTE % 0.3 %; LYMPHOCYTE # 2.1 K/uL (0.8-4.0); LYMPHOCYTE % 17.3 %; MCH 31.9 pg (27.0-34.0); MCHC 33.6 gm/dL (32.0-36.5); MCV 94.7 fl (83.0-98.0); MONOCYTE # 0.7 K/uL (0.0-1.0); MONOCYTE % 5.6 %; MPV 10.5 fl (9.4-12.4); NEUTROPHIL # (ANC) 8.6 K/uL (1.4-9.0); NEUTROPHIL % 72.5 %; NRBC % 0 /100WBC (0-0.00); PLATELET COUNT 569 K/uL (150-450); RBC 3.61 M/uL (4.00-6.00); RDW-CV 12.4 % (11.9-14.6); WBC 11.9 K/uL (4.0-11.0)
--- NOTE | 2017-01-13 16:24 | NUR ---
Significant Event:Able to look left today, which is new. NSR. Failed CPAP trials, remains in SIMV, same settings. Tube feeding at goal, no residuals. MOM today, BM smear and lots of foul flatus and burping. Turned in bed q2h, family declines for family to be up in recliner x 2, due to multiple visitors visiting patient for his birthday. Scheduled pain meds given, last at 1400. Order completed for transfer to [facility], scheduled for 1000 on Saturday. Flomax stopped, parry patent. All labs DC'd. Follow up: Tylenol last at 1700, with last water flush for todays shift.
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
--- NOTE | 2017-01-14 05:37 | NUR ---
Pt did tolerate about 2hrs of CPAP/PS last night at beginning of shift, then had increased RR and at 0100 attempt, he had apnea episodes. Suctioned moderate amounts of cream secretions from trach. Plan to transfer to [facility] this AM.
--- NOTE | 2017-01-14 10:07 | NUR ---
Patient discharging to [facility] today at [address] [facility] Hernandes calling Dr Kennedy with report per Nancy at [facility] request, nurse will call report to [facility] nurse. I faxed orders to [facility]. Talked with Carine at bedside.
--- NOTE | 2017-01-14 12:12 | NUR ---
Patient transferred to [facility] at 1125. Vital signs were stable. Right wrist IV saline locked. Ventilator setting on SIMV. He does overbreath ventilator limit of 16. He opened his eyes to voice, but not tracking. Not following any commnads. Restraints were still in place because patient is purposeful with his left hand toward tracheostomy and ventilator. Tube feed was shut off for transfer and PEG tube clamped.
== END 2017-01-14 11:25 | DRG 3 ==
LOC: GACC 02:03 → GICU 02:50
PROVIDERS: Anesthesiology; Family Medicine; Neurological Surgery; ADMIT Surgery
PROC: 5A1955Z Respiratory Ventilation, Greater than 96 Consecutive Hours (ICD-10-PCS; principal; 2016-12-23)
PROC: 03HC33Z Insertion of Infusion Device into Left Radial Artery, Percutaneous Approach (ICD-10-PCS; principal; 2016-12-23)
PROC: 05HM33Z Insertion of Infusion Device into Right Internal Jugular Vein, Percutaneous Approach (ICD-10-PCS; principal; 2016-12-23)
PROC: B543ZZA Ultrasonography of Right Jugular Veins, Guidance (ICD-10-PCS; principal; 2016-12-23)
PROC: 00163JB Bypass Cerebral Ventricle to Cerebral Cisterns with Synthetic Substitute, Percutaneous Approach (ICD-10-PCS; principal; 2016-12-23)
PROC: 0B113F4 Bypass Trachea to Cutaneous with Tracheostomy Device, Percutaneous Approach (ICD-10-PCS; 2016-12-31)
PROC: 0DH63UZ Insertion of Feeding Device into Stomach, Percutaneous Approach (ICD-10-PCS; 2016-12-31)
DX: S06.2X9A Diffuse traumatic brain injury with loss of consciousness of unspecified duration, initial encounter (principal); J69.0 Pneumonitis due to inhalation of food and vomit; J15.6 Pneumonia due to other Gram-negative bacteria; J96.00 Acute respiratory failure, unspecified whether with hypoxia or hypercapnia; D62 Acute posthemorrhagic anemia; J98.11 Atelectasis; I10 Essential (primary) hypertension; K21.9 Gastro-esophageal reflux disease without esophagitis; R33.9 Retention of urine, unspecified; V89.2XXA Person injured in unspecified motor-vehicle accident, traffic, initial encounter
CPT/HCPCS: C1751; C9113; G0390; G0480; J0290; J0696; J1650; J1956; J2370; J2704; J2997; J3010; J3480; J7030; J7040; J7050; J7060; Q2009; Q9967

== ENCOUNTER → 2016-12-23 | Outpatient (CLI) | payer OTHER ==
[~2016-12-23] MED LIST: PRINIVIL OR ZES10 MG PO; ZOLOFT50 MG PO
== END | disposition disaster alternative care site (69) ==
LOC: GAIR 01:44
DX: S06.9X9A Unspecified intracranial injury with loss of consciousness of unspecified duration, initial encounter (principal); V59.3XXA Occupant (driver) (passenger) of pick-up truck or van injured in unspecified nontraffic accident, initial encounter
CPT/HCPCS: A0422; A0431; A0436

== ENCOUNTER → 2017-01-14 | Outpatient (CLI) | payer OTHER | END | disposition disaster alternative care site (69) | LOC: GAMB 10:29 | DX: S06.5X9A Traumatic subdural hemorrhage with loss of consciousness of unspecified duration, initial encounter (principal); S27.0XXA Traumatic pneumothorax, initial encounter; I10 Essential (primary) hypertension; R41.82 Altered mental status, unspecified; Z93.1 Gastrostomy status; Z79.899 Other long term (current) drug therapy; V89.2XXA Person injured in unspecified motor-vehicle accident, traffic, initial encounter | CPT/HCPCS: A0422; A0425; A0426 ==